=== PATIENT | female | born 1945 ===

== ENCOUNTER 2016-11-18 10:37 | Emergency (ER) | payer MEDICARE, MEDICAID ==
[2016-11-18] MEDS ORDERED: Midazolam 2 MG/2 ML VIAL ONE (10:39)
[2016-11-18] MEDS ORDERED: Midazolam 2 MG/2 ML VIAL IV ONE (10:59)
[2016-11-18] MEDS ORDERED: Etomidate 20 mg/10ml Inj IV ONE (11:00)
--- NOTE | 2016-11-18 11:01 | ED PDOC ---
HPI:STROKE - Time Time: 10:46 ((seen on arrival)) - Historian Historian: EMS - Chief Complaint Chief Complaint: Unresponsive - Onset Date: 11/17/16 Time: 20:00 - Timing Timing: Currently Symptomatic - Exacerbated by Exacerbated by:: Nothing - Relieved by Relieved by:: Nothing - TPA Positive for Contraindication: Yes Reason tPA is not being Administered: +SAH - Notes: Notes:: 70yo female brought in by ALS after being found unresponsive, laying supine on the floor. Patient was last known well last night at 2000. On arrival pt with agonal respirations, aniscoria and +oral secretions. Relatively normotensive. HPI, History, ROS limited by patient condition and clinical urgency. NIHSS Stroke Scale - Date/Time Evaluation Performed Date Performed: 11/18/16 Time Performed: 10:59 - How Severe is the Stroke Level of Consciousness: 3=Unresponsive rTPA Inclusion/Exclusion - Refusal of Treatment Patient Refused Treatment: No - Inclusion Criteria for Altepase Patient is 18 years or Older: Yes The Clinical Diagnosis of Ischemic Stroke That is Causing a Potentially Disabling Neurological Deficit: No Time of Onset is Well Established to be Less Than 270 Minute Before Treatment Would Begin: No Risk/Benefit Discussed With Patient/Family Member Present: Yes - Exclusion Criteria for Altepase Uncontrolled Hypertension at Time of Treatment (Systolic BP above 185 or Diastolic BP above 110 mmHg): No - Warning to TPA With Conditions Following Conditions Weighed Against Anticipated Benefit: Yes Condition: Increase Risk of Bleed Due to Comorbid Condition Past Medical History Reviewed: Historical Data, Nursing Documentation, Vital Signs, Unable To Obtain - Family History Family History: States: Unknown Family Hx - Allergies Allergies/Adverse Reactions: Allergies Allergy/AdvReac Type Severity Reaction Status Date / Time Unobtainable Allergy Verified 11/18/16 10:52 Review of Systems Review Of Systems: ROS cannot be obtained secondary to pt's inabilty to answer questions. Physical Exam - Reviewed Nursing Documentation Reviewed: Yes Vital Signs Reviewed: Yes - Physical Exam Appears: Positive for: In Acute Distress (Non-responsive, anexcoriated) Head Exam: Positive for: ATRAUMATIC, NORMAL INSPECTION, NORMOCEPHALIC Eye Exam: Positive for: Other (sluggish pupils) Respiratory: Negative for: Respiratory Distress (but with increased secretions) Extremity: Positive for: Other (Extension to pain) Neurologic/Psych: Positive for: Other (GCS=4. ) - Laboratory Results Result Diagrams: 11/18/16 11:45 11/18/16 11:45 - ECG ECG: Positive for: Interpreted By Me ECG Rhythm: Positive for: ST/T Changes (ST elev) O2 Sat by Pulse Oximetry: 94 Pulse Ox Interpretation: Normal - Radiology X-Ray Interpretation: No Acute Disease - Progress ED Course And Treament: Code stroke not initiated as initial reports from EMS stated last known well 10 + hrs earlier. Family was not available in ED until ~45min into care. - Physician Consult Information Physician Contacted: Gentry Crocker Outcome Of Conversation: transfer for salvage interventional neurosurgery, [facility] cannot service SAH via intervention. - Critical Care Total Time (In Min): 45 Comments: pt required immediate bedside attention due to AMS and possible acute CVA Medical Decision Making Medical Decision Making: ~1055 Versed 2mg given for apparent trismus/ seizure. Procedure Note- ET intubation. Indication: GCS <8 with active secretions and inability to protect airway. Patient intubated by me via VL with direct visualization of cords after etomidate 20mg given IV. +color change capnography. +b/l BS on auscultation. SPO2 improved to 100% and vent settings ordered thereafter. Diprivan drip initiated for sedation. ETT secured. CXR ETT 3cm above jeanine. ASA contraindicated. [address] Bloom Code Heart. Not candidate given critical neurologic function. [address] Magallanes radiology. +large subarachnoid hemorrghage. CT CSpine no reported fracture. Keppra loaded. [address] Crocker neurology who recommends transfer to [facility] interventional neurosurgery. ST elev likely result of severe SAH and neurologic intervention precludes any cardio intervention. Trop mildly elevated. Plt and coags reviewed and clinically unremarkable. vent setting adjusted via RT to titrate O2. 1135 Family now at bedside and clarifies that patient was last known well this morning. They were assisting patient with "dyeing her hair" when patient went into the bedroom. Patient was found after they heard a loud thump. 1140 case discussed with kelli, they are evaluating for acceptance of transfer. Consent obtained from daughter for transfer via shellfish harvester Marysol Ibarra. Patient had spontaneous movement of head on re-evaluation. Explained to family prognosis remains critical and this is very possibly life threatening. Disposition - Clinical Impression Clinical Impression: Subarachnoid hemorrhage, ST elevation, Coma - Patient ED Disposition Is Patient to be Admitted: Yes Counseled Patient/Family Regarding: Studies Performed, Diagnosis - Disposition Disposition: Other Institution ([facility] neuroICU Dr Bunny Gomez accepting) Disposition Time: 11:50 Condition: CRITICAL - Pt Status Changed To: Hospital Disposition Of: Inpatient - Admit Certification Admit to Inpatient:: After my assessment, the patient will require hospitalization for at least two midnights. This is because of the severity of symptoms shown, intensity of services needed, and/or the medical risk in this patient being treated as an outpatient. - POA Present On Arrival: Falls Or Trauma
[2016-11-18 11:33] LABS: ABG ALLEN TEST YES; ABG MECHANICAL RATE 12; ARTERIAL BLOOD GAS HCO3 23.6 mmol/L (21-28); ARTERIAL BLOOD GAS MODE PRVC/AC; ARTERIAL BLOOD GAS O2 CAPACITY 17.9 mL/dL (16-24); ARTERIAL BLOOD GAS PH 7.39 (7.35-7.45); ARTERIAL BLOOD GAS PO2 278 mm/Hg (80-100); ARTERIAL BLOOD HGB O2 SAT 97.1 % (95.0-98.0); ATERIAL BLOOD GAS PEEP 5; CARBOXYHEMOGLOBIN 1.7 % (0.5-1.5); HHB -0.7 % (0.0-5.0); METHEMOGLOBIN 1.9 % (0.0-3.0)
--- NOTE | 2016-11-18 11:33 | CT ---
PROCEDURE: CT HEAD WITHOUT CONTRAST. HISTORY: r/o ICH COMPARISON: None available. TECHNIQUE: Axial computed tomography images were obtained through the head/brain without intravenous contrast. Radiation dose: Total exam DLP = 765.10 mGy-cm. FINDINGS: BRAIN: Extensive subarachnoid hemorrhage involving suprasellar, basal, sylvian, and intrahemispheric cisterns. No mass effect or edema. No atrophy or chronic microvascular ischemic changes. VENTRICLES: Small amount of intraventricular hemorrhage noted within the bilateral frontal horn lateral ventricles as well as the 3rd and 4th ventricles. No hydrocephalus. CALVARIUM: Unremarkable. PARANASAL SINUSES: Unremarkable as visualized. No significant inflammatory changes. MASTOID AIR CELLS: Unremarkable as visualized. No inflammatory changes. OTHER FINDINGS: None. IMPRESSION: Extensive subarachnoid and intraventricular hemorrhage as above. Correlate clinically for possibility of ruptured cerebral artery aneurysm. Findings discussed with Dr. Blunt on 11/18/16 at 11:23 a.m.
--- NOTE | 2016-11-18 11:41 | CT ---
CT cervical spine without IV contrast Indication: Trauma, rule out fracture Comparison: None available. Technique: Axial computed tomography images were obtained of the cervical spine without the use of intravenous contrast. Coronal and sagittal reformatted images were created and reviewed. Radiation dose: Total exam DLP = 460.11 mGy-cm. Findings: Straightening of the normal cervical lordosis may be related to muscle spasm or positioning. Mild multilevel degenerative changes including small osteophyte formation and minimal intervertebral disc space narrowing. There is no evidence of acute fracture or subluxation. The prevertebral soft tissues and spinolaminar lines appear intact. The uncovertebral joints are well maintained. The lateral masses are preserved. The dens tip is intact. There is proper alignment of the lateral masses of C1 with the C2 vertebral body. Partially imaged endotracheal tube and nasogastric tube. Limited visualization of the base of the brain reveal subarachnoid hemorrhage Included portions of the thyroid gland appear heterogeneous. Included portions of lung apices demonstrates bilateral dependent consolidations. Impression: Straightening of the normal cervical lordosis may be related to muscle spasm or positioning. No evidence of acute fracture or subluxation. Mild degenerative changes of the spine. Partially imaged subarachnoid hemorrhage; please refer to CT head without contrast performed concurrently for more detailed discussion. Partially imaged endotracheal tube and nasogastric tube. Lung apices demonstrate bilateral depending consolidations. Heterogeneous appearance of the included portions thyroid gland.
[2016-11-18 12:11] LABS: PARTIAL THROMBOPLASTIN TIME 23.1 SECONDS (23.3-32.5)
[2016-11-18 12:12] LABS: BASO % 0.3 % (0.0-2.0); BLOOD UREA NITROGEN 19 mg/dl (7-17); CALCIUM 9.1 mg/dL (8.4-10.2); CARBON DIOXIDE 22 mmol/L (22-30); CHLORIDE 106 mmol/L (98-107); EOS % 0.2 % (0.0-4.0); GFR AFRICAN-AMERICAN > 60; GLUCOSE,RANDOM 130 mg/dL (65-105); HEMATOCRIT 40.9 % (34.0-47.0); LYMPH # 1.5 K/uL (1.0-4.3); LYMPH % 18.2 % (20.0-40.0); MEAN CELL VOLUME 90.7 fl (81.0-99.0); MEAN CORPUSCULAR HEMOGLOBIN 29.5 pg (27.0-31.0); MEAN CORPUSCULAR HGB CONC 32.6 g/dL (33.0-37.0); MEAN PLATELET VOLUME 7.3 fl (7.2-11.7); MONO # 0.4 K/uL (0.0-0.8); MONO % 4.5 % (0.0-10.0); NEUT # 6.5 K/uL (1.8-7.0); NEUT % 76.8 % (50.0-75.0); NRBC % 0.1 % (0.0-0.0); POTASSIUM 3.9 MMOL/L (3.6-5.0); RED CELL DISTRIBUTION WIDTH 14.1 % (11.5-14.5); SODIUM 139 mmol/l (132-148); WHITE BLOOD COUNT 8.4 K/uL (4.8-10.8)
--- NOTE | 2016-11-18 12:17 | RAD ---
HISTORY: SOB COMPARISON: None available. TECHNIQUE: Chest, one view. FINDINGS: Distal tip of an endotracheal tube terminates approximately 3 cm above the kayla. LUNGS: Linear atelectasis, right midlung zone. Please note that chest x-ray has limited sensitivity for the detection of pulmonary masses. PLEURA: No significant pleural effusion identified. No definite pneumothorax . CARDIOVASCULAR: The cardiomediastinal silhouette appears within normal limits of size. OSSEOUS STRUCTURES: No acute osseous abnormality identified. VISUALIZED UPPER ABDOMEN: Unremarkable. OTHER FINDINGS: None. IMPRESSION: Endotracheal tube terminates approximately 3 cm above the level the kayla.
[2016-11-18 12:35] VITALS: RESP 14
[2016-11-18 13:15] VITALS: BP 130/78; PULSE 87
--- NOTE | 2016-11-19 07:22 | CARD ---
APPROVED REPORT EKG Measurement Heart [id number] <Conclusion> Undetermined rhythm (due to baseline artefacts) ST elevation, consider lateral injury or acute infarct ACUTE LA / STEMI Abnormal ECG
[2016-11-19 16:17] VITALS: O2SAT 94
== END 2016-11-18 13:17 | disposition short-term general hospital (02) ==
LOC: H.ER 10:37
DX: I60.9 Nontraumatic subarachnoid hemorrhage, unspecified (principal); R40.20 Unspecified coma
CPT/HCPCS: 36600; 70450; 71010; 72125; 80048; 82803; 84484; 85025; 85610; 85730; 93005; 94002; 96374; 96375; 99283; J1953; J2250; J2704

== ENCOUNTER 2016-12-07 13:13 | Inpatient (IN) | payer MEDICARE, MEDICAID ==
[2016-12-07 18:44] VITALS: BMI 23.8
--- NOTE | 2016-12-07 20:32 | CP.PCM.HP ---
History of Present Illness - History of Present Illness History of Present Illness: PCP: Not on Staff Chief Complaint: Subaracnoid Hemorrhage for Acute Rehabilitation HPI: 70 years old female from [place] here on vacation with her daughter, transferred from the [facility] with Subaracnoid Hemorrhage s/p AV shunt placement. She has hx of HTN and on 11/18/16 was found on the floor unresponsive with left facial droop, brought to the [facility] ED intubated, and diagnosed with Subdural hematoma due to Aneursmal bleed. She was Immediately transferred to [facility] where ventriculostomy and catheter with distal tip terminating in right frontal horn with embolization and coiling was done. the Neuro surgeon was Dr Sg Gomez. During her admission she was diagnosed with Acute Cardiomyopathy and Pancreatitis which are improving. PMH: HTN; Acute respiratory failure with Intubation; Groove Pancreatitis; Anemia ; Acute Cardiomyopathy; Ruptured Cerebral Aneurysm PSH: Appendectomy; (11/18/16 Ventriculostomy with embolization and aneurysmal coiling); (12/05/16 [employer] Shunt placement) SH: Non smoker; no illegal drug use; No alcohol, Lives with son in [place], now staying with daughter in [place] FH: No hereditary disease Allergies: NKDA Present on Admission - Present on Admission Any Indicators Present on Admission: No History of DVT/PE: No History of Uncontrolled Diabetes: No Urinary Catheter: No Decubitus Ulcer Present: No Review of Systems - Constitutional Constitutional: Headache. absent: Fatigue, Fever - EENT Eyes: Requires Corrective Lenses. absent: Blurred Vision, Photophobia, Sees Flashes Ears: absent: Decreased Hearing, Ear Discharge, Ear Pain, Tinnitus Nose/Mouth/Throat: absent: Epistaxis, Nasal Congestion, Nasal Discharge, Sore Throat Additional comments: Ptosis left eye. - Cardiovascular Cardiovascular: absent: Chest Pain, Dyspnea, Edema, Orthopnea - Respiratory Respiratory: absent: Cough, Dyspnea, Wheezing, Stridor - Gastrointestinal Gastrointestinal: Abdominal Pain. absent: Constipation, Diarrhea, Nausea, Vomiting - Genitourinary Genitourinary: Dysuria. absent: Flank Pain, Hematuria, Urinary Frequency - Musculoskeletal Musculoskeletal: absent: Arthralgias, Joint Swelling, Myalgias, Numbness - Integumentary Additional comments: Rash to right upper shoulder, at the left axillae region, erythema behind the right ear - Neurological Neurological: Dizziness, Focal Weakness, Headaches Additional comments: right facial weakness. - Psychiatric Psychiatric: absent: Anxiety, Depression, Panic Attacks - Endocrine Endocrine: absent: Palpitations, Polydipsia, Polyphagia, Polyuria - Hematologic/Lymphatic Hematologic: absent: Easy Bleeding, Easy Bruising Past Patient History - Past Medical History & Family History Past Medical History?: Yes - Past Social History Smoking Status: Unknown If Ever Smoked Chewing Tobacco Use: No Cigar Use: No Alcohol: None Drugs: Denies Home Situation {Lives}: With Family - CARDIAC Hx Cardiac Disorders: Yes Hx Hypertension: Yes - PULMONARY Hx Respiratory Disorders: Yes Other/Comment: Acute respiratory failure with intubation/ extubation - NEUROLOGICAL Hx Neurological Disorder: Yes HX Cerebrovascular Accident: Yes (Subaracnoid hemorrhage) Other/Comment: Third nerve Palsy - HEENT Hx HEENT Problems: Yes Other/Comment: Right eye Ptosis - RENAL Hx Chronic Kidney Disease: No - ENDOCRINE/METABOLIC Hx Endocrine Disorders: No - HEMATOLOGICAL/ONCOLOGICAL Hx Anemia: Yes - INTEGUMENTARY Hx Dermatological Problems: No - MUSCULOSKELETAL/RHEUMATOLOGICAL Hx Musculoskeletal Disorders: No - GASTROINTESTINAL Hx Gastrointestinal Disorders: No - PSYCHIATRIC Hx Psychophysiologic Disorder: No Hx Substance Use: No - SURGICAL HISTORY Hx Surgeries: Yes Other/Comment: Cerebral Ventriculostomy cath with distal tip terminating in Right frontal horn and embolization coiling. LEGAL DOCUMENT SPECIALIST shunt - ANESTHESIA Hx Anesthesia: Yes Hx Anesthesia Reactions: No Meds Allergies/Adverse Reactions: Allergies Allergy/AdvReac Type Severity Reaction Status Date / Time No Known Allergies Allergy Verified 12/07/16 21:19 Physical Exam - Head Exam Head Exam: absent: NORMAL INSPECTION Additional comments: New surgical wound with shama 10cm at right parieto-occipital region and surgical wound with staple behind the right ear. - Eye Exam Eye Exam: absent: EOMI Pupil Exam: NORMAL ACCOMODATION Additional comments: Ptosis of the left eye with minimal active opening. 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 - ENT Exam Additional comments: Erythema at right posterior auricule with surgical wound and staple, and infra auricular ischemia. - Neck Exam Neck exam: Positive for: Full Rom. Negative for: Lymphadenopathy, Thyromegaly - Respiratory Exam Respiratory Exam: Clear to Auscultation Bilateral. absent: Rales, Rhonchi, Wheezes - Cardiovascular Exam Cardiovascular Exam: REGULAR RHYTHM, RRR, +S1, +S2. absent: Gallop, JVD - GI/Abdominal Exam Additional comments: 8cm infra umbilical surgical wound with transparent dressing. Abdomen flat, soft ,+ve bowel sounds, generalized tenderness, no guarding nor rebound tenderness. - Rectal Exam Rectal Exam: Deferred - Extremities Exam Extremities exam: Positive for: full ROM, normal inspection. Negative for: joint swelling, pedal edema, tenderness - Back Exam Back exam: NORMAL INSPECTION. absent: CVA tenderness (L), CVA tenderness (R) - Neurological Exam Neurological exam: Alert, Oriented x3, Reflexes Normal Additional comments: Left third nerve palsy with Left ptosis and deviation of the eye center and to the right. - Psychiatric Exam Psychiatric exam: Normal Affect, Normal Mood - Skin Skin Exam: Dry, Warm Additional comments: Erythematous rash at upper right chest wall with mild ecchymosis, non-tender. Erythema at left axillae, non tender. Results - EKG Data EKG comments: EK11/19/16: Sinus rhythm 88/min - Impressions Impression: 12/04/16 Hb 9.3g/dl Ht 28 WBC 3.9 Platelet 607 Sodium 134 Potassium 3.8 BUN 12 Creatinine 0.6 Pro BNP 2811 11/18/16: LDL 132; HDL 54; cholesterol 206 - Imaging and Cardiology CT scan - chest Status: Report reviewed by me Additional comment: 11/18/16: Extensive subarachnoid and Intraventricular hemorrhage of possible ruptured cerebral artery aneurysm. CT scan - abdomen Status: Report reviewed by me Additional comment: 11/27/16 1. Subtle inflammatory change in the pancreticoduodenal groove, suspicious for groove pancreatitis. 2. Small pericardial effusion 3. Small right and trace left pleural effusions. Atelectasis vs scaring in the right minor fissure. 4. Subcentimeter hepatic lesion, statistically a cyst.. MRSA screen by PCR Status: Report reviewed by me Additional comment: Negative ECHO 11/30/16 Status: Report reviewed by me Additional comment: EF 55% Aneurysm of base of mid anterolateral wall smaller than previous study. Assessment & Plan - Assessment and Plan (Free Text) Assessment: #. Subaracnoid Hemorrhage s/p embolism of ruptured intracraneal Aneurysm #. Hyponatremia #. HTN #. Anemia #. Resolving Groove pancreatitis #. Resolving Acute Cardiomyopathy Plan: 70 years old female, transferred for rehabilitation, from the [facility] with Subaracnoid Hemorrhage s/p AV shunt placement. On was found on the floor unresponsive with left facial droop, brought to the [facility] ED and diagnosed with Subdural hematoma due to Aneursmal bleed. She was Immediately transferred to [facility] where embolization and coiling of ruptured cntracranial aneurysm was done. The Neuro surgeon was Dr Sg Gomez. #. Subaracnoid Hemorrhage s/p embolism of ruptured intracraneal Aneurysm,s/p LEGAL DOCUMENT SPECIALIST shunt placement -Consult Neurology Dr Snider - consult Dr Mccray Physiatry - Physical Therapy - Occupational Therapy - Pain management #. Hyponatremia - Fegular diet - Sodium Chloride tablets igm TID - follow electrolytes #. HTN - Coreg - Monitor Vital signs #. Anemia - Monitor HB #. Resolving Groove pancreatitis - follow Amylase - Pain management #. Resolving Acute Cardiomyopathy - Coreg #. Stress ulcer Prophylaxis with Pantoprazole #. DVT prophylaxis - Lovenox #. code Status: Full - Date & Time Date: 12/07/16 Time: 20:32
[2016-12-07] MEDS ORDERED: ACETAMINOPHEN PO PRN (22:40)
[2016-12-07] MEDS ORDERED: Oxycodone/Acetaminophen 5/325 mg Tab PO PRN ×2 (22:40)
[2016-12-08] MEDS: Artificial Tears Opht Soln OU SCH ×2 (00:25→17:14)
[2016-12-08] MEDS ORDERED: Oxycodone/Acetaminophen 5/325 mg Tab PO PRN (06:36)
[2016-12-08 07:27] LABS: BASO % 0.7 % (0.0-2.0); EOS % 0.3 % (0.0-4.0); HEMATOCRIT 31.3 % (34.0-47.0); LYMPH # 1.3 K/uL (1.0-4.3); LYMPH % 30.6 % (20.0-40.0); MEAN CELL VOLUME 90.7 fl (81.0-99.0); MEAN CORPUSCULAR HEMOGLOBIN 29.5 pg (27.0-31.0); MEAN CORPUSCULAR HGB CONC 32.5 g/dL (33.0-37.0); MEAN PLATELET VOLUME 6.3 fl (7.2-11.7); MONO # 0.6 K/uL (0.0-0.8); MONO % 13.8 % (0.0-10.0); NEUT # 2.2 K/uL (1.8-7.0); NEUT % 54.6 % (50.0-75.0); RED CELL DISTRIBUTION WIDTH 15.9 % (11.5-14.5); WHITE BLOOD COUNT 4.1 K/uL (4.8-10.8)
[2016-12-08 07:36] LABS: ALB/GLOB RATIO 1.1 (1.0-2.1); ALKALINE PHOSPHATASE 172 U/L (38-126); ALT/SGPT 24 U/L (9-52); AST/SGOT 32 U/L (14-36); BILIRUBIN,TOTAL 0.7 mg/dl (0.2-1.3); BLOOD UREA NITROGEN 7 mg/dl (7-17); CALCIUM 9.6 mg/dL (8.4-10.2); CARBON DIOXIDE 25 mmol/L (22-30); CHLORIDE 102 mmol/L (98-107); GFR AFRICAN-AMERICAN > 60; GLUCOSE,RANDOM 99 mg/dL (65-105); LIPASE 241 U/L (23-300); POTASSIUM 3.7 MMOL/L (3.6-5.0); SODIUM 139 mmol/l (132-148); TOTAL PROTEIN 6.8 G/DL (6.3-8.2)
[2016-12-08 07:40] LABS: PARTIAL THROMBOPLASTIN TIME 29.2 SECONDS (23.3-32.5)
[2016-12-08] MEDS: Pantoprazole 40 mg EC Tab PO SCH (09:21)
[2016-12-08] MEDS: Oxycodone/Acetaminophen 5/325 mg Tab PO PRN ×2 (09:27→17:40)
[2016-12-08] MEDS: Enoxaparin 40 mg Syringe SC SCH (11:00)
--- NOTE | 2016-12-08 11:54 | CP.PCM.CON ---
History of Present Illness - History of Present Illness History of Present Illness: 70 year old female for acute inpatient rehab status post subarachnoid hemorrhage. Patient also initially had ruptured cerebral aneurysm. Now status post HIGH ENERGY FORMING EQUIPMENT OPERATOR shunt by neurosurgeon. Review of Systems - Musculoskeletal Musculoskeletal: Abnormal Gait, Muscle Weakness Past Patient History - Past Medical History & Family History Past Medical History?: Yes - Past Social History Smoking Status: Unknown If Ever Smoked Chewing Tobacco Use: No Cigar Use: No Alcohol: None Drugs: Denies Home Situation {Lives}: With Family - CARDIAC Hx Cardiac Disorders: Yes Hx Hypertension: Yes - PULMONARY Hx Respiratory Disorders: Yes Other/Comment: Acute respiratory failure with intubation/ extubation - NEUROLOGICAL Hx Neurological Disorder: Yes HX Cerebrovascular Accident: Yes (Subaracnoid hemorrhage) Other/Comment: Third nerve Palsy - HEENT Hx HEENT Problems: Yes Other/Comment: Right eye Ptosis - RENAL Hx Chronic Kidney Disease: No - ENDOCRINE/METABOLIC Hx Endocrine Disorders: No - HEMATOLOGICAL/ONCOLOGICAL Hx Anemia: Yes - INTEGUMENTARY Hx Dermatological Problems: No - MUSCULOSKELETAL/RHEUMATOLOGICAL Hx Musculoskeletal Disorders: No - GASTROINTESTINAL Hx Gastrointestinal Disorders: No - GENITOURINARY/GYNECOLOGICAL Hx Genitourinary Disorders: No - PSYCHIATRIC Hx Psychophysiologic Disorder: No Hx Substance Use: No - SURGICAL HISTORY Hx Surgeries: Yes Other/Comment: Cerebral Ventriculostomy cath with distal tip terminating in Right frontal horn and embolization coiling. HIGH ENERGY FORMING EQUIPMENT OPERATOR shunt - ANESTHESIA Hx Anesthesia: Yes Hx Anesthesia Reactions: No Meds Allergies/Adverse Reactions: Allergies Allergy/AdvReac Type Severity Reaction Status Date / Time No Known Allergies Allergy Verified 12/07/16 21:19 - Medications Medications: Current Medications Acetaminophen (Tylenol 325mg Tab) 650 mg PO Q4 PRN PRN Reason: Fever >100.4 F Artificial Tears (Artificial Tears) 1 drop OU QD6 COUNTS INCLUDE 234 BEDS AT THE [facility] Last Admin: 12/08/16 00:25 Dose: 1 drop Carvedilol (Coreg) 3.125 mg PO Q12 COUNTS INCLUDE 234 BEDS AT THE [facility] Last Admin: 12/08/16 09:19 Dose: 3.125 mg Docusate Sodium (Colace) 100 mg PO BID COUNTS INCLUDE 234 BEDS AT THE [facility] Last Admin: 12/08/16 09:20 Dose: 100 mg Enoxaparin Sodium (Lovenox) 40 mg SC DAILY COUNTS INCLUDE 234 BEDS AT THE [facility] PRN Reason: Protocol Methadone HCl (Methadone) 2.5 mg PO Q8 COUNTS INCLUDE 234 BEDS AT THE [facility] Last Admin: 12/08/16 06:24 Dose: 2.5 mg Oxycodone/Acetaminophen (Percocet 5/325 Mg Tab) 2 tab PO Q4 PRN PRN Reason: Pain, severe (8-10) Stop: 12/10/16 22:41 Oxycodone/Acetaminophen (Percocet 5/325 Mg Tab) 1 tab PO Q4 PRN PRN Reason: Pain, moderate (4-7) Stop: 12/10/16 22:41 Last Admin: 12/08/16 09:27 Dose: 1 tab Pantoprazole Sodium (Protonix Ec Tab) 40 mg PO DAILY COUNTS INCLUDE 234 BEDS AT THE [facility] Last Admin: 12/08/16 09:21 Dose: 40 mg Sennosides (Senokot Tab) 8.6 mg PO DAILY COUNTS INCLUDE 234 BEDS AT THE [facility] Last Admin: 12/08/16 09:21 Dose: 8.6 mg Sodium Chloride (Sodium Chloride Tab) 1 gm PO TID COUNTS INCLUDE 234 BEDS AT THE [facility] Last Admin: 12/08/16 09:24 Dose: 1 gm Topiramate (Topamax) 25 mg PO Q12 COUNTS INCLUDE 234 BEDS AT THE [facility] Last Admin: 12/08/16 09:23 Dose: 25 mg Physical Exam - Constitutional Appears: Well - Head Exam Head Exam: NORMOCEPHALIC Additional comments: status post shama - Eye Exam Eye Exam: Normal appearance Pupil Exam: NORMAL ACCOMODATION Additional comments: ptyosis left eye - ENT Exam ENT Exam: Mucous Membranes Moist, Normal Exam - Respiratory Exam Respiratory Exam: NORMAL BREATHING PATTERN - Cardiovascular Exam Cardiovascular Exam: REGULAR RHYTHM - GI/Abdominal Exam GI & Abdominal Exam: Normal Bowel Sounds - Rectal Exam Rectal Exam: NORMAL INSPECTION - Extremities Exam Additional comments: left eye ptysis, right sided weakness decreased strength and coordination, balance - Back Exam Back exam: NORMAL INSPECTION - Neurological Exam Neurological exam: Alert, Reflexes Normal - Psychiatric Exam Psychiatric exam: Normal Affect, Normal Mood - Skin Skin Exam: Dry, Warm Results - Vital Signs Recent Vital Signs: Last Vital Signs Temp 97.9 F 12/08/16 09:43 Pulse 81 12/08/16 09:43 Resp 20 12/08/16 09:43 BP 143/71 12/08/16 09:43 Pulse Ox 98 12/08/16 09:43 - Labs Result Diagrams: 12/08/16 05:30 12/08/16 05:30 Labs: Laboratory Results - last 24 hr 12/08/16 05:30 WBC 4.1 L D RBC 3.45 L Hgb 10.2 L D Hct 31.3 L MCV 90.7 MCH 29.5 MCHC 32.5 L RDW 15.9 H Plt Count 511 H D MPV 6.3 L Neut % (Auto) 54.6 Lymph % (Auto) 30.6 Davidson % (Auto) 13.8 H Eos % (Auto) 0.3 Baso % (Auto) 0.7 Neut # 2.2 Lymph # 1.3 Davidson # 0.6 Eos # 0.0 Baso # 0.0 PT 11.4 H INR 1.10 H APTT 29.2 Sodium 139 Potassium 3.7 Chloride 102 Carbon Dioxide 25 Anion Gap 16 BUN 7 Creatinine 0.6 L Est GFR ( Amer) > 60 Est GFR (Non-Af Amer) > 60 Random Glucose 99 Calcium 9.6 Total Bilirubin 0.7 AST 32 ALT 24 Alkaline Phosphatase 172 H Total Protein 6.8 Albumin 3.5 Globulin 3.3 Albumin/Globulin Ratio 1.1 Lipase 241 Assessment & Plan (1) Subarachnoid hemorrhage Assessment and Plan: patient also with diagnosis of Cardiopathy, HIGH ENERGY FORMING EQUIPMENT OPERATOR shunt placement HTn Pancreatitis Ruptured cerebral aneurysm Plan for physical, occupational, speech , receational therapy program. Overall plan and goals to dictate. For Acute Rehab. Status: Acute
--- NOTE | 2016-12-08 13:08 | PN ---
DATE: 12/08/2016 The patient is a 70-year-old female admitted for acute inpatient rehab on 12/07. A patient with a di agnosis of subarachnoid hemorrhage, status post ventriculoperitoneal shunt, also history of ruptured cerebral aneurysm. The patient was diagnosed also with hypertension, cardiomyopathy, pancreatitis, n ow admitted for acute inpatient rehabilitation. Estimated length of stay for this patient is 2-3 wee ks. Anticipated discharge plan is to go back to live at home with supportive services. TREATMENT PLAN: For the patient is physical therapy, occupational therapy, recreational therapy, spe ech therapy and case management. Plan for the patient and treatment is to get range of motion, stren gthening, transfers, ambulation, gait training, speech for cognitive evaluation, ADL evaluation and e quipment evaluation. Goals for the patient will be further changed and modified depending on patient 's return of muscle strength and cognition and how patient does in therapy. At present, goals for ind ependent to supervision for bed mobility, independent to supervision for simple transfers, supervisio n to contact guard for complex transfers, supervision to contact guard for ambulation with assistive devices, contact guard to min assist for elevations. The patient is again for physical therapy, occu pational therapy, recreational therapy, speech therapy. DISCHARGE DISPOSITION: For discharge home. CONDITION AT PRESENT: Stable. George Hurst MD cc: [phone] TT: 12/08/2016 13:07:34 Confirmation # [id number] Dictation # [id number] [email or web address]
[2016-12-08] MEDS ORDERED: Artificial Tears Opht Soln OU SCH (18:00)
[2016-12-08] MEDS ORDERED: HYPROMELLOSE OU SCH (18:00)
[2016-12-08] MEDS ORDERED: DEXTRAN OU SCH (18:00)
[2016-12-09] MEDS: Enoxaparin 40 mg Syringe SC SCH (08:59)
[2016-12-09] MEDS: Pantoprazole 40 mg EC Tab PO SCH (08:59)
--- NOTE | 2016-12-09 10:25 | CP.PCM.PN ---
Subjective - Date & Time of Evaluation Date of Evaluation: 12/09/16 Time of Evaluation: 10:24 - Subjective Subjective: patient seen in physical therapy for evaluation doing well without any complains does have generalized weakness, however strength is grossly equal vitals stable no acute distress Objective - Vital Signs/Intake and Output Vital Signs (last 24 hours): Temp Pulse Resp BP Pulse Ox 97.9 F 77 19 120/56 L 100 12/09/16 07:36 12/09/16 08:59 12/09/16 07:36 12/09/16 08:59 12/09/16 07:36 - Medications Medications: Current Medications Acetaminophen (Tylenol 325mg Tab) 650 mg PO Q4 PRN PRN Reason: Fever >100.4 F Artificial Tears (Artificial Tears) 1 drop OU QD6 [facility] Last Admin: 12/08/16 17:14 Dose: 1 drop Carvedilol (Coreg) 3.125 mg PO Q12 [facility] Last Admin: 12/09/16 08:59 Dose: 3.125 mg Docusate Sodium (Colace) 100 mg PO BID [facility] Last Admin: 12/09/16 08:59 Dose: 100 mg Enoxaparin Sodium (Lovenox) 40 mg SC DAILY [facility] PRN Reason: Protocol Last Admin: 12/09/16 08:59 Dose: 40 mg Methadone HCl (Methadone) 2.5 mg PO Q8 [facility] Last Admin: 12/09/16 06:49 Dose: 2.5 mg Oxycodone/Acetaminophen (Percocet 5/325 Mg Tab) 2 tab PO Q4 PRN PRN Reason: Pain, severe (8-10) Stop: 12/10/16 22:41 Oxycodone/Acetaminophen (Percocet 5/325 Mg Tab) 1 tab PO Q4 PRN PRN Reason: Pain, moderate (4-7) Stop: 12/10/16 22:41 Last Admin: 12/08/16 17:40 Dose: 1 tab Pantoprazole Sodium (Protonix Ec Tab) 40 mg PO DAILY [facility] Last Admin: 12/09/16 08:59 Dose: 40 mg Sennosides (Senokot Tab) 8.6 mg PO DAILY [facility] Last Admin: 12/09/16 08:59 Dose: 8.6 mg Sodium Chloride (Sodium Chloride Tab) 1 gm PO TID [facility] Last Admin: 12/09/16 08:58 Dose: 1 gm Topiramate (Topamax) 25 mg PO Q12 [facility] Last Admin: 12/09/16 08:59 Dose: 25 mg - Labs Labs: 12/08/16 05:30 12/08/16 05:30 PT 11.4 SECONDS (9.6-11.2) H 12/08/16 05:30 INR 1.10 (0.92-1.08) H 12/08/16 05:30 APTT 29.2 SECONDS (23.3-32.5) 12/08/16 05:30 - Constitutional Appears: Non-toxic, No Acute Distress - Head Exam Head Exam: NORMOCEPHALIC Additional comments: s/p craniotomy - Eye Exam Eye Exam: EOMI, Normal appearance, PERRL Pupil Exam: NORMAL ACCOMODATION - ENT Exam ENT Exam: Mucous Membranes Moist, Normal Exam - Neck Exam Neck Exam: Full ROM, Normal Inspection - Respiratory Exam Respiratory Exam: Clear to Ausculation Bilateral, NORMAL BREATHING PATTERN - Cardiovascular Exam Cardiovascular Exam: RRR, +S1, +S2. absent: Gallop, Rubs - GI/Abdominal Exam GI & Abdominal Exam: Soft, Normal Bowel Sounds. absent: Tenderness, Mass, Organomegaly - Extremities Exam Extremities Exam: Full ROM, Normal Capillary Refill - Back Exam Back Exam: absent: CVA tenderness (L), CVA tenderness (R) - Neurological Exam Neurological Exam: Alert, Awake - Psychiatric Exam Psychiatric exam: Normal Affect, Normal Mood - Skin Skin Exam: Dry, Warm Assessment and Plan - Assessment and Plan (Free Text) Plan: 70 years old female, transferred for rehabilitation, from the [facility] with Subaracnoid Hemorrhage s/p AV shunt placement. On was found on the floor unresponsive with left facial droop, brought to the [facility] ED and diagnosed with Subdural hematoma due to Aneursmal bleed. She was Immediately transferred to [facility] where embolization and coiling of ruptured intracranial aneurysm was done. The Neuro surgeon was Dr Sg Gomez. 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 patient is stable, tolerating PT well. -Consult Neurology Dr Snider - consult Dr Mccray Physiatry - Physical Therapy - Occupational Therapy - Pain management Hyponatremia - Fegular diet - Sodium Chloride tablets igm TID - follow electrolytes HTN - Coreg - Monitor Vital signs Anemia - Monitor HB Resolving pancreatitis - follow Amylase - Pain management Resolving Acute Cardiomyopathy - Coreg Stress ulcer Prophylaxis with Pantoprazole DVT prophylaxis - Lovenox code Status: Full
[2016-12-09] MEDS: Artificial Tears Opht Soln OU SCH (17:11)
[2016-12-10] MEDS: Pantoprazole 40 mg EC Tab PO SCH (08:43)
[2016-12-10] MEDS: Enoxaparin 40 mg Syringe SC SCH (08:43)
--- NOTE | 2016-12-10 15:36 | CP.PCM.PN ---
Subjective - Date & Time of Evaluation Date of Evaluation: 12/10/16 Time of Evaluation: 15:00 - Subjective Subjective: patient with no neck or back pain Objective - Vital Signs/Intake and Output Vital Signs (last 24 hours): Temp Pulse Resp BP Pulse Ox 97.9 F 81 20 109/66 100 12/10/16 09:05 12/10/16 09:05 12/10/16 09:05 12/10/16 09:05 12/10/16 09:05 - Medications Medications: Current Medications Acetaminophen (Tylenol 325mg Tab) 650 mg PO Q4 PRN PRN Reason: Fever >100.4 F Acetaminophen (Tylenol 325mg Tab) 650 mg PO Q6 PRN PRN Reason: mild pain 1-3, headache, fever Last Admin: 12/10/16 14:05 Dose: 650 mg Artificial Tears (Artificial Tears) 1 drop OU QD6 [facility] Last Admin: 12/09/16 17:11 Dose: 1 drop Carvedilol (Coreg) 3.125 mg PO Q12 [facility] Last Admin: 12/10/16 08:43 Dose: 3.125 mg Docusate Sodium (Colace) 100 mg PO BID [facility] Last Admin: 12/10/16 08:44 Dose: 100 mg Enoxaparin Sodium (Lovenox) 40 mg SC DAILY [facility] PRN Reason: Protocol Last Admin: 12/10/16 08:43 Dose: 40 mg Oxycodone/Acetaminophen (Percocet 5/325 Mg Tab) 2 tab PO Q4 PRN PRN Reason: Pain, severe (8-10) Stop: 12/10/16 22:41 Oxycodone/Acetaminophen (Percocet 5/325 Mg Tab) 1 tab PO Q4 PRN PRN Reason: Pain, moderate (4-7) Stop: 12/10/16 22:41 Last Admin: 12/08/16 17:40 Dose: 1 tab Pantoprazole Sodium (Protonix Ec Tab) 40 mg PO DAILY [facility] Last Admin: 12/10/16 08:43 Dose: 40 mg Sennosides (Senokot Tab) 8.6 mg PO DAILY [facility] Last Admin: 12/10/16 08:44 Dose: 8.6 mg Sodium Chloride (Sodium Chloride Tab) 1 gm PO TID [facility] Last Admin: 12/10/16 12:14 Dose: 1 gm Topiramate (Topamax) 25 mg PO Q12 [facility] Last Admin: 12/10/16 08:44 Dose: 25 mg - Labs Labs: 12/08/16 05:30 12/08/16 05:30 PT 11.4 SECONDS (9.6-11.2) H 12/08/16 05:30 INR 1.10 (0.92-1.08) H 12/08/16 05:30 APTT 29.2 SECONDS (23.3-32.5) 12/08/16 05:30 - Head Exam Head Exam: ATRAUMATIC, NORMAL INSPECTION, NORMOCEPHALIC - Eye Exam Eye Exam: EOMI, Normal appearance, PERRL Pupil Exam: NORMAL ACCOMODATION - ENT Exam ENT Exam: Mucous Membranes Moist, Normal Exam - Respiratory Exam Respiratory Exam: NORMAL BREATHING PATTERN - Cardiovascular Exam Cardiovascular Exam: REGULAR RHYTHM - GI/Abdominal Exam GI & Abdominal Exam: Normal Bowel Sounds - Rectal Exam Rectal Exam: NORMAL INSPECTION - Exam External exam: NORMAL EXTERNAL EXAM - Extremities Exam Extremities Exam: Normal Capillary Refill, Normal Inspection - Neurological Exam Neurological Exam: Alert, Awake Neuro motor strength exam: Left Upper Extremity: 4, Right Upper Extremity: 3, Left Lower Extremity: 4, Right Lower Extremity: 3 - Psychiatric Exam Psychiatric exam: Normal Affect, Normal Mood - Skin Skin Exam: Dry, Intact Assessment and Plan (1) Subarachnoid hemorrhage Assessment & Plan: physcial, occupational therapy caregiver training Dc for friday Status: Acute
[2016-12-10] MEDS: Artificial Tears Opht Soln OU SCH ×2 (16:36→17:04)
--- NOTE | 2016-12-11 02:49 | CP.PCM.CON ---
History of Present Illness - History of Present Illness History of Present Illness: Chief Complaint: Subaracnoid Hemorrhage for Acute Rehabilitation HPI: 70 years old female from [place] here on vacation with her daughter, transferred from the [facility] with Subaracnoid Hemorrhage s/p AV shunt placement. She has hx of HTN and on 11/18/16 was found on the floor unresponsive with left facial droop, brought to the [facility] ED intubated, and diagnosed with Subdural hematoma due to Aneursmal bleed. She was Immediately transferred to [facility] where ventriculostomy and catheter with distal tip terminating in right frontal horn with embolization and coiling was done. the Neuro surgeon was Dr Sg oGmez. During her admission she was diagnosed with Acute Cardiomyopathy and Pancreatitis which are improving. 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 Tech Shunt placement) SH: Non smoker; no illegal drug use; No alcohol, Lives with son in [place], now staying with daughter in [place] FH: No hereditary disease Allergies: NKDA Past Patient History - Past Medical History & Family History Past Medical History?: Yes - Past Social History Smoking Status: Unknown If Ever Smoked Chewing Tobacco Use: No Cigar Use: No Alcohol: None Drugs: Denies Home Situation {Lives}: With Family - CARDIAC Hx Cardiac Disorders: Yes Hx Hypertension: Yes - PULMONARY Hx Respiratory Disorders: Yes Other/Comment: Acute respiratory failure with intubation/ extubation - NEUROLOGICAL Hx Neurological Disorder: Yes HX Cerebrovascular Accident: Yes (Subaracnoid hemorrhage) Other/Comment: Third nerve Palsy - HEENT Hx HEENT Problems: Yes Other/Comment: Right eye Ptosis - SURGICAL HISTORY Hx Surgeries: Yes Other/Comment: Cerebral Ventriculostomy cath with distal tip terminating in Right frontal horn and embolization coiling. TOOL REPAIRER shunt - ANESTHESIA Hx Anesthesia: Yes Hx Anesthesia Reactions: No Meds Allergies/Adverse Reactions: Allergies Allergy/AdvReac Type Severity Reaction Status Date / Time No Known Allergies Allergy Verified 12/07/16 21:19 CT scan - abdomen Status: Report reviewed by me Additional comment: 11/27/16 1. Subtle inflammatory change in the pancreticoduodenal groove, suspicious for groove pancreatitis. 2. Small pericardial effusion 3. Small right and trace left pleural effusions. Atelectasis vs scaring in the right minor fissure. 4. Subcentimeter hepatic lesion, statistically a cyst.. MRSA screen by PCR Status: Report reviewed by me Additional comment: Negative ECHO 11/30/16 Status: Report reviewed by me Additional comment: EF 55% Aneurysm of base of mid anterolateral wall smaller than previous study. Assessment & Plan - Assessment and Plan (Free Text) Assessment: #. Subaracnoid Hemorrhage s/p embolism of ruptured intracraneal Aneurysm #. Hyponatremia #. HTN #. Anemia #. Resolving Groove pancreatitis #. Resolving Acute Cardiomyopathy Plan: 70 years old female, transferred for rehabilitation, from the [facility] with Subaracnoid Hemorrhage s/p AV shunt placement. On was found on the floor unresponsive with left facial droop, brought to the [facility] ED and diagnosed with Subdural hematoma due to Aneursmal bleed. She was Immediately transferred to [facility] where embolization and coiling of ruptured cntracranial aneurysm was done. The Neuro surgeon was Dr Sg Gomez. #. 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 Patient needs to be covered by AED. Past Patient History - Past Medical History & Family History Past Medical History?: Yes - Past Social History Smoking Status: Unknown If Ever Smoked Chewing Tobacco Use: No Cigar Use: No Alcohol: None Drugs: Denies Home Situation {Lives}: With Family - CARDIAC Hx Hypertension: Yes - PULMONARY Hx Respiratory Disorders: Yes Other/Comment: Acute respiratory failure with intubation/ extubation - NEUROLOGICAL Hx Neurological Disorder: Yes HX Cerebrovascular Accident: Yes (Subaracnoid hemorrhage) Other/Comment: Third nerve Palsy - HEENT Hx HEENT Problems: Yes Other/Comment: Right eye Ptosis - RENAL Hx Chronic Kidney Disease: No - ENDOCRINE/METABOLIC Hx Endocrine Disorders: No - HEMATOLOGICAL/ONCOLOGICAL Hx Anemia: Yes - INTEGUMENTARY Hx Dermatological Problems: No - MUSCULOSKELETAL/RHEUMATOLOGICAL Hx Arthritis: Yes - GASTROINTESTINAL Hx Gastrointestinal Disorders: No - GENITOURINARY/GYNECOLOGICAL Hx Genitourinary Disorders: No - PSYCHIATRIC Hx Psychophysiologic Disorder: No Hx Substance Use: No - SURGICAL HISTORY Hx Surgeries: Yes Other/Comment: Cerebral Ventriculostomy cath with distal tip terminating in Right frontal horn and embolization coiling. TOOL REPAIRER shunt - ANESTHESIA Hx Anesthesia: Yes Hx Anesthesia Reactions: No Meds Allergies/Adverse Reactions: Allergies Allergy/AdvReac Type Severity Reaction Status Date / Time No Known Allergies Allergy Verified 12/07/16 21:19 - Medications Medications: Current Medications Acetaminophen (Tylenol 325mg Tab) 650 mg PO Q4 PRN PRN Reason: Fever >100.4 F Acetaminophen (Tylenol 325mg Tab) 650 mg PO Q6 PRN PRN Reason: mild pain 1-3, headache, fever Last Admin: 12/10/16 22:15 Dose: 650 mg Artificial Tears (Artificial Tears) 1 drop OU QD6 [facility] Last Admin: 12/10/16 17:04 Dose: Not Given Carvedilol (Coreg) 3.125 mg PO Q12 [facility] Last Admin: 12/10/16 21:49 Dose: 3.125 mg Docusate Sodium (Colace) 100 mg PO BID [facility] Last Admin: 12/10/16 16:38 Dose: 100 mg Enoxaparin Sodium (Lovenox) 40 mg SC DAILY [facility] PRN Reason: Protocol Last Admin: 12/10/16 08:43 Dose: 40 mg Pantoprazole Sodium (Protonix Ec Tab) 40 mg PO DAILY [facility] Last Admin: 12/10/16 08:43 Dose: 40 mg Sennosides (Senokot Tab) 8.6 mg PO DAILY [facility] Last Admin: 12/10/16 08:44 Dose: 8.6 mg Sodium Chloride (Sodium Chloride Tab) 1 gm PO TID [facility] Last Admin: 12/10/16 16:36 Dose: 1 gm Topiramate (Topamax) 25 mg PO Q12 [facility] Last Admin: 12/10/16 21:48 Dose: 25 mg Physical Exam - Neurological Exam Additional comments: Patient is lying down in bed peacefully, she is interactive. Mental Status: Awake, alert, disoriented to place, oriented to time, knows we are in 2017, oriented to person as she is oriented to her daughter. She does not know who is the president and thinks it is Obama and needs to be helped to say Trump. Speech is non fluent, non Coherent. 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 She is not seeing with the left eye. no facial asymmetry, tongue is central shrugging her shoulders. Motor: Normal Right side tone and reduced left Upper Extremity tone, with mild left Pronator Drift Left LE tone is low normal and power is slightly reduced. DTR is 0/4 Toes are up going on the left side. Sensory: Reduced on the left side UE and LE and reduced Glove and Stoke bilaterally peripherally in both UEs and LEs. Cerebellar: Normal Right FNT Unable to assess HST and can't Tandem walk. Stature and Gait: Reported to walk with a walker and excessive help. Results - Vital Signs Recent Vital Signs: Last Vital Signs Temp 98.4 F 12/10/16 20:09 Pulse 76 12/10/16 21:49 Resp 20 12/10/16 20:09 BP 120/59 L 12/10/16 21:49 Pulse Ox 97 12/10/16 20:09 - Labs Result Diagrams: 12/08/16 05:30 12/08/16 05:30 Assessment & Plan (1) Coma Assessment and Plan: Her Coma was transient and was well controlled. Status: Acute (2) Subarachnoid hemorrhage Assessment and Plan: Cerebral Aneurysm causing her SAH was successfully clogged and embolized by a Coil. Status: Acute (3) Seizures Assessment and Plan: Patient may have seizures at any time and needs to be covered with AED. She is already on Topamax. Will get an EEG. Status: Acute
[2016-12-11 07:37] LABS: HEMATOCRIT 30.6 % (34.0-47.0); MEAN CELL VOLUME 91.4 fl (81.0-99.0); MEAN CORPUSCULAR HEMOGLOBIN 30.3 pg (27.0-31.0); MEAN CORPUSCULAR HGB CONC 33.2 g/dL (33.0-37.0); RED CELL DISTRIBUTION WIDTH 16.2 % (11.5-14.5); WHITE BLOOD COUNT 2.8 K/uL (4.8-10.8)
[2016-12-11 08:00] LABS: CHOLESTEROL 202 mg/dL (0-199)
[2016-12-11] MEDS: Enoxaparin 40 mg Syringe SC SCH (09:17)
[2016-12-11] MEDS: Pantoprazole 40 mg EC Tab PO SCH (09:22)
--- NOTE | 2016-12-11 09:30 | US ---
PROCEDURE: Carotid vertebral duplex sonography HISTORY: CVA COMPARISON: None TECHNIQUE: Grayscale, color Doppler and spectral Doppler assessment of the carotid system bilaterally. This includes common carotid, internal carotid arteries Vertebral artery assessment with respect to direction of flow (antegrade or retrograde) FINDINGS: RIGHT carotid system: Assessment of plaque: Heterogeneous plaque formation. Peak systolic ICA velocity: 112 cm/sec End-diastolic velocity: 36 cm/sec ICA/CCA ratio: 2.2 Vertebral artery flow: Antegrade LEFT carotid system: Assessment of plaque: Heterogeneous plaque formation. Peak systolic ICA velocity: 104 cm/sec End-diastolic velocity: 39 cm/sec ICA/CCA ratio: 1.7 Vertebral artery flow: Antegrade IMPRESSION: Right ICA degree of stenosis: Less than 50% Left ICA degree of stenosis: Less than 50% Reference Internal Carotid Artery (ICA) Peak Systolic Velocity (PSV) for above: 1. Less than 50% stenosis less than 125 cm/s peak systolic velocity 2. 50-69% stenosis 125-230cm/s peak systolic velocity 3. Greater than 70% but less than near occlusion greater than 230 cm/s peak systolic velocity
--- NOTE | 2016-12-11 11:57 | CP.PCM.PN ---
Subjective - Date & Time of Evaluation Date of Evaluation: 12/11/16 Time of Evaluation: 11:40 - Subjective Subjective: Hospitalist Progress Note (Patient was seen and examined at 11:40 AM 12/11/16 626 [phone] with the help of PT Nanda (who translated) and PT Nilda) 70 year old female who was admitted to Acute Rehab at [facility] on 12/07/16 from [facility] where she presented on 11/18/16 after she was found on the floor by her family (Daughter Bria [phone] whom she is visiting from the [place] where patient lives with Son) and had left facial droop. She was found to have a SubArachnoid Hemorrhage secondary to Aneurysmal Bleeding and she underwent ventriculostomy and catheter with distal tip terminating in right frontal horn with embolization and coiling was done by the Neurosurgeon Dr. Sg Gomez. She was also treated at [facility] for Pancreatitis and Acute Cardiomyopathy. She was admitted to Acute Rehab for PT/OT. CT Abdomen/Pelvis 11/27/16: 1. Subtle inflammatory change in the pancreticoduodenal groove, suspicious for groove pancreatitis. 2. Small pericardial effusion 3. Small right and trace left pleural effusions. Atelectasis vs scaring in the right minor fissure. 4. Subcentimeter hepatic lesion, statistically a cyst. Echocardiogram 11/30/16: 1. EF 55% 2. Aneurysm of base of mid anterolateral wall; smaller than previous study. Carotid U/S 12/11/16: Bilateral < 50% Stenosis of ICA ROS: Bitemporal MO in the AM and PM responsive to Tylenol Blurriness of vision and Diplopia if both eyes open. Can see color out of left eye but can't isolate movement, can't read or make out shapes from left eye Unsteadiness while on feet that is slowly improving, able to use walker NO abdominal pain, NO n/v/d/c, Tolerating her meals without any issues NO other complaints upon FULL ROS Exam: General: AAO X 3, NAD HEENT: Left Eye Ptosis and patient unable to lift left eyelid, Both Pupils are around but the Right smaller than Left, Both Pupils reactive to light and accomodation but the Left more sluggishly, RIght Eye EOMI but not on the Left, NO cervical lymphadenopathy, NO thyromegaly, NO Pharyngeal erythema/exudate, Oral Mucosa and Nasal Turbinates are moist Cardiology: NS1 and NS2, NO M/R/G Respiratory: CTA B/L, NO R/R/W GI: BSx4, Soft, NT, ND, NO HSM, NO guarding/rebound tenderness Extremities: Pulses are strong and equal, Capillar Refill is 2 seconds, NO edema Neurology: Please see HEENT, 5/5 strength bilateral UE and LE with flexion and extension, 2/4 DTR bilateral UE and LE Assessment and Plan 1). Subarachnoid Hemorrhage S/P Ventriculostomy (catheter with distal tip terminating in Right Frontal Horn) with Embolization/Coiling Nursing staff in Acute Rehab has contacted Neurosurgeon Dr. Gomez's office for F/ U plan and medications: awaiting call back Neurologist Dr. Snider has seen patient and has recommended EEG which has been ordered and will need to be followed up. PT/OT Topamax 25 mg PO Q12H 2). Hyponatremia NaCl 1 gram tab PO TID Na on 12/08/16 was 139 and repeat CMP has been ordered for 12/12/16. 3). Hx HTN Coreg 3.125 mg PO Q12H Blood Pressure is controlled 4). Anemia likely Secondary to Subarachnoid Hemorrhage HgB/Hct are stable on 12/08/16 and 12/11/16 5). Hx Pancreatitis See CT Abd/Pelvis findings above Lipase on 12/08/16 was normal at 241 NO abdominal pain and tolerating diet 6). Hx Acute Cardiomyopathy See Echo findings above Coreg 3.125 mg PO Q12H 7). Prophylactic Measures Tylenol 650 mg PO Q4H PRN Fever and Mild Pain Artificial Tears 1 drop OU Q6H Colace 100 mg PO 2x/day Protonix 40 mg PO 1x/day Senokot 8.6 mg PO 1x/day Objective - Vital Signs/Intake and Output Vital Signs (last 24 hours): Temp Pulse Resp BP Pulse Ox 97.9 F 69 18 122/62 100 12/11/16 09:50 12/11/16 09:50 12/11/16 09:50 12/11/16 09:50 12/11/16 09:50 - Medications Medications: Current Medications Acetaminophen (Tylenol 325mg Tab) 650 mg PO Q4 PRN PRN Reason: Fever >100.4 F Acetaminophen (Tylenol 325mg Tab) 650 mg PO Q6 PRN PRN Reason: mild pain 1-3, headache, fever Last Admin: 12/11/16 09:23 Dose: 650 mg Artificial Tears (Artificial Tears) 1 drop OU QD6 [facility] BEDS AT [facility] Last Admin: 12/10/16 17:04 Dose: Not Given Carvedilol (Coreg) 3.125 mg PO Q12 [facility]S [facility] Last Admin: 12/11/16 09:17 Dose: 3.125 mg Docusate Sodium (Colace) 100 mg PO BID [facility] 234 BEDS AT [facility] Last Admin: 12/11/16 09:21 Dose: 100 mg Pantoprazole Sodium (Protonix Ec Tab) 40 mg PO DAILY [facility]S [facility] Last Admin: 12/11/16 09:22 Dose: 40 mg Sennosides (Senokot Tab) 8.6 mg PO DAILY [facility] 234 BEDS [facility] Last Admin: 12/11/16 09:21 Dose: 8.6 mg Sodium Chloride (Sodium Chloride Tab) 1 gm PO TID [facility] 234 BEDS [facility] Last Admin: 12/11/16 09:17 Dose: 1 gm Topiramate (Topamax) 25 mg PO Q12 [facility]S [facility] Last Admin: 12/11/16 09:21 Dose: 25 mg - Labs Labs: 12/11/16 07:05 12/08/16 05:30 PT 11.4 SECONDS (9.6-11.2) H 12/08/16 05:30 INR 1.10 (0.92-1.08) H 12/08/16 05:30 APTT 29.2 SECONDS (23.3-32.5) 12/08/16 05:30
[2016-12-11] MEDS ORDERED: Oxycodone/Acetaminophen 5/325 mg Tab PO PRN ×2 (11:59→12:00)
--- NOTE | 2016-12-11 12:18 | PSY.TMCNF ---
Nursing - Vital Signs Vital Signs (Last 8 hours): Vital Signs 12/11/16 12/11/16 09:17 09:50 Temperature 97.9 F Pulse Rate 69 69 Respiratory 18 Rate Blood Pressure 122/62 122/62 O2 Sat by Pulse 100 Oximetry Pain: 3 - Medications/Other Issues Comment: Pt at low nutritional risk. goals: Pt to continue to consume at least 75% meals without GI upset x 7-9 days, Pt to have nutrition related labs WNL x 7 -9 days, Pt skin to continue to heal x 7-9 days. Follow-up due on 12/18/2016 - Skin Incision Site: right frontal head i/l with león Incision: León Intact Incision Line Treatment: right frontal head i/l with león;below right side of head i/l with 2 león;behind right ear i/l with 2 león-cleansed with NS, ARTURO;. right side of abdomen with dermabond and 1 suture-reddened - Bladder Management Bladder Pattern: Normal Voiding Method: Bedpan - Bowel Management Bowel Pattern: Normal - Goals/Time Frame Comments: Prec - pt Faroese speaking, seatbelt alarm. "paulette king sugisel" Physical Therapy - Bed Mobility Bed Mobility: Verbal Cues, Contact Guard - Transfers Wheelchair to Mat: Minimal Assistance Sit to Stand: Contact Guard - Ambulation Level of Assistance: Contact Guard, Minimal Assistance Distance (ft.): 100 Assistive Devices: Rolling Walker Comment: CGA with RW. min A with hand held assist - Stair Negotiation Stairs: Level of Assistance: Minimal Assistance Number of Stairs: 6 Handrails: Bilateral - Standing Balance Static Stand: Contact Guard Assist Dynamic Stand: Minimal Assistance - Pain Management Techniques: Medication, Distraction, Inactivity - Insight/Carryover Insight/Carryover: Good - Patient/Family Education Comment: Pt education for increased safety awareness and proper techniques during functional mobility tasks. Pt and family education for role of PT, PT goals, and POC. - Assessment/Plan Assessment: Pt presents with impaired BLE strength, standing balance, and endurance resulting in decreased I with functional mobility tasks. Pt requires CGA/Maco for all functional mobility skills with impaired safety awareness. Pt will benefit from skilled PT intervention to address deficits and progress her towards fdc goals. Pt has supportive family and good motivation during therapy sessions. - Goals Timeframe: 3 weeks Goals: Pt will ascend/descend 14 stairs with one handrail mod I. Pt will ambulate 500 ft without device (I). Bed mobility mod I. SIt < > stand and stand pivot transfers mod I - Provider Therapist: Catherine Kamara PT, DPT License Number: [id number] Occupational Therapy - Arousal/Attention/Orientation Patient Orientation: Person - ADL/IADL Self Feeding: Set-up Help, Contact Guard Grooming: Set-up Help, Contact Guard Bathing-Upper Extremity: Set-up Help, Moderate Assistance Bathing-Lower Extremity: Set-up Help, Moderate Assistance Dressing-Upper Extremity: Verbal Cues, Set-up Help, Minimal Assistance Dressing-Lower Extremity: Verbal Cues, Set-up Help, Moderate Assistance - Sitting Balance Static Sitting: Supervision Dynamic Sitting: Contact Guard Assist - Transfers Wheelchair to Bed Transfers: Contact Guard, Minimal Assistance Toilet Transfers: Minimal Assistance Comment: To trial bathing transfers in future sessions. - Pain Alleviating Techniques: Medication, Distraction, Inactivity - Insight/Carryover Insight/Carryover: Good - Patient/Family Education Comment: Pt education for increased safety awareness and proper techniques during functional mobility tasks. Pt and family education for role of PT, PT goals, and POC. - Assessment/Plan Assessment: Pt presents with impaired BLE strength, standing balance, and endurance resulting in decreased I with functional mobility tasks. Pt requires CGA/Maco for all functional mobility skills with impaired safety awareness. Pt will benefit from skilled PT intervention to address deficits and progress her towards oil heaterman goals. Pt has supportive family and good motivation during therapy sessions. - Goals Timeframe: 3 weeks Goals: Pt will ascend/descend 14 stairs with one handrail mod I. Pt will ambulate 500 ft without device (I). Bed mobility mod I. SIt < > stand and stand pivot transfers mod I - Provider Therapist: Nilda ross License Number: [id number] Speech Therapy - Consult Information Patient on Program: Yes Medical Diagnosis: subarachnoid hemorrhage Treatment Diagnosis: moderate cognitive linguistic deficits - Assessment Expressive Language Impairment: Mild Receptive Language Impairment: Mild Problem Solving Impairment: Moderate Memory Impairment: Moderate - Plan Assessment: Pt presents with impaired BLE strength, standing balance, and endurance resulting in decreased I with functional mobility tasks. Pt requires CGA/Maco for all functional mobility skills with impaired safety awareness. Pt will benefit from skilled PT intervention to address deficits and progress her towards oil heaterman goals. Pt has supportive family and good motivation during therapy sessions. - Provider Therapist: Nanda Robbins License Number: [id number] Recreational Therapy - Participation Participation: Participates in Individual and/or Group Sessions - Attendance Attendance: 3-5 times per week - Activities Leisure Activities: Television - Socialization Level of Socialization: Initiates/interacts freely with care givers and peer - Diversional Time Diversional Time: likes to read, watch television, color - Assessment Assessment/Plan: Pt presents with impaired BLE strength, standing balance, and endurance resulting in decreased I with functional mobility tasks. Pt requires CGA/Maco for all functional mobility skills with impaired safety awareness. Pt will benefit from skilled PT intervention to address deficits and progress her towards oil heaterman goals. Pt has supportive family and good motivation during therapy sessions. - Provider Therapist: Blanquita Hall, [employer]ICER #[id number] Nutrition - Current Diet Current Diet/ Supplement/ Feedings: Regular diet thin liquids - Appetite Percent Meal Consumed: 50-74% - Assessment/Goals/Time Frame Assessment/Goals/Time Frame: Pt at low nutritional risk. goals: Pt to continue to consume at least 75% meals without GI upset x 7-9 days, Pt to have nutrition related labs WNL x 7-9 days, Pt skin to continue to heal x 7-9 days. Follow-up due on 12/18/2016 - Provider Provider: Flora Callejas RD Rehabilitation Plan - Treatment Plan Treatment Plan: Physical Therapy, Occupational Therapy, Speech, Dietary, Patient /Family Education - Discharge Plan Estimated Date of Discharge: 12/21/16 Discharge to: Home
--- NOTE | 2016-12-11 16:22 | CP.PCM.PN ---
Subjective - Date & Time of Evaluation Date of Evaluation: 12/11/16 Time of Evaluation: 16:21 - Subjective Subjective: Patient seen in room with family present and discussed with wilderness guide denies pain or sob left eye ptosis slow gains in therapy at this pace not projected to be able to d/c home and will need LALA Objective - Vital Signs/Intake and Output Vital Signs (last 24 hours): Temp Pulse Resp BP Pulse Ox 97.9 F 84 18 122/62 96 12/11/16 11:00 12/11/16 15:11 12/11/16 11:00 12/11/16 11:00 12/11/16 15:11 - Medications Medications: Current Medications Acetaminophen (Tylenol 325mg Tab) 650 mg PO Q4 PRN PRN Reason: Fever >100.4 F Acetaminophen (Tylenol 325mg Tab) 650 mg PO Q6 PRN PRN Reason: mild pain 1-3, headache, fever Last Admin: 12/11/16 09:23 Dose: 650 mg Artificial Tears (Artificial Tears) 1 drop OU QD6 [facility] Last Admin: 12/10/16 17:04 Dose: Not Given Carvedilol (Coreg) 3.125 mg PO Q12 [facility] Last Admin: 12/11/16 09:17 Dose: 3.125 mg Docusate Sodium (Colace) 100 mg PO BID [facility] Last Admin: 12/11/16 09:21 Dose: 100 mg Oxycodone/Acetaminophen (Percocet 5/325 Mg Tab) 1 tab PO Q4 PRN PRN Reason: Pain, moderate (4-7) Stop: 12/14/16 12:00 Oxycodone/Acetaminophen (Percocet 5/325 Mg Tab) 2 tab PO Q4 PRN PRN Reason: Pain, severe (8-10) Stop: 12/14/16 12:01 Pantoprazole Sodium (Protonix Ec Tab) 40 mg PO DAILY [facility] Last Admin: 12/11/16 09:22 Dose: 40 mg Sennosides (Senokot Tab) 8.6 mg PO DAILY [facility] Last Admin: 12/11/16 09:21 Dose: 8.6 mg Sodium Chloride (Sodium Chloride Tab) 1 gm PO TID [facility] Last Admin: 12/11/16 12:35 Dose: 1 gm Topiramate (Topamax) 25 mg PO Q12 [facility] Last Admin: 12/11/16 09:21 Dose: 25 mg - Labs Labs: 12/11/16 07:05 12/08/16 05:30 PT 11.4 SECONDS (9.6-11.2) H 12/08/16 05:30 INR 1.10 (0.92-1.08) H 12/08/16 05:30 APTT 29.2 SECONDS (23.3-32.5) 12/08/16 05:30
[2016-12-11] MEDS: Artificial Tears Opht Soln OU SCH (17:05)
[2016-12-12 08:21] LABS: ALB/GLOB RATIO 1.1 (1.0-2.1); ALKALINE PHOSPHATASE 154 U/L (38-126); ALT/SGPT 26 U/L (9-52); AST/SGOT 45 U/L (14-36); BILIRUBIN,TOTAL 0.4 mg/dl (0.2-1.3); BLOOD UREA NITROGEN 15 mg/dl (7-17); CALCIUM 9.1 mg/dL (8.4-10.2); CARBON DIOXIDE 25 mmol/L (22-30); CHLORIDE 106 mmol/L (98-107); GFR AFRICAN-AMERICAN > 60; GLUCOSE,RANDOM 88 mg/dL (65-105); POTASSIUM 4.1 MMOL/L (3.6-5.0); SODIUM 143 mmol/l (132-148); TOTAL PROTEIN 6.7 G/DL (6.3-8.2)
[2016-12-12] MEDS: Ergocalciferol 50,000 Intl Units Cap PO SCH (09:07)
[2016-12-12] MEDS: Pantoprazole 40 mg EC Tab PO SCH (09:08)
--- NOTE | 2016-12-12 14:57 | EEG ---
DATE: 12/11/2016 The record is obtained to rule out seizures, rule out encephalopathy. The record was obtained while the patient was awake and drowsy. The record was noted to be equal on both sides with velocity of 8 cycles per second. Waves are fairly formed, fairly organized with a posterior distribution, moderate in amplitude, reactive to eye opening by attenuation. There are no abnormal discharges. No spike, no polyspike, no sharp wave, no focal slowing, no paroxysmal discharge. The record did not show any changes with photic stimulation. The hyperventilation was omitted. There are periods of drowsiness during which attenuation and slowing of the record were seen and theta waves were seen. There were n o periods of sleep that were seen. There were eye movement artifact, electrode artifact, and muscle movement artifacts. Photic stimulation was performed and did not produce any changes. Hyperventilat ion was omitted. In sum, this is a normal awake and drowsy EEG. Clinical correlation is recommended. Erika Snider MD cc: [id number] TT: 12/12/2016 00:46:54 Confirmation # [id number] Dictation # [id number]
[2016-12-12] MEDS: Artificial Tears Opht Soln OU SCH (17:16)
--- NOTE | 2016-12-12 19:13 | CP.PCM.PN ---
Subjective - Date & Time of Evaluation Date of Evaluation: 12/12/16 Time of Evaluation: 12:00 - Subjective Subjective: no acute complaint at present feel she is getting stronger Objective - Vital Signs/Intake and Output Vital Signs (last 24 hours): Temp Pulse Resp BP Pulse Ox 97.2 F L 79 18 117/87 99 12/12/16 16:01 12/12/16 16:01 12/12/16 16:01 12/12/16 16:01 12/12/16 15:18 - Medications Medications: Current Medications Acetaminophen (Tylenol 325mg Tab) 650 mg PO Q4 PRN PRN Reason: Fever >100.4 F Acetaminophen (Tylenol 325mg Tab) 650 mg PO Q6 PRN PRN Reason: mild pain 1-3, headache, fever Last Admin: 12/12/16 17:26 Dose: 650 mg Artificial Tears (Artificial Tears) 1 drop OU QD6 [facility] Last Admin: 12/12/16 17:16 Dose: 1 drop Carvedilol (Coreg) 3.125 mg PO Q12 [facility] Last Admin: 12/12/16 09:07 Dose: 3.125 mg Docusate Sodium (Colace) 100 mg PO BID [facility] Last Admin: 12/12/16 17:16 Dose: 100 mg Ergocalciferol (Drisdol 50,000 Intl Units Cap) 1 cap PO Q7D [facility] Stop: 01/30/17 09:00 Last Admin: 12/12/16 09:07 Dose: 1 cap Oxycodone/Acetaminophen (Percocet 5/325 Mg Tab) 1 tab PO Q4 PRN PRN Reason: Pain, moderate (4-7) Stop: 12/14/16 12:00 Oxycodone/Acetaminophen (Percocet 5/325 Mg Tab) 2 tab PO Q4 PRN PRN Reason: Pain, severe (8-10) Stop: 12/14/16 12:01 Pantoprazole Sodium (Protonix Ec Tab) 40 mg PO DAILY [facility] Last Admin: 12/12/16 09:08 Dose: 40 mg Sennosides (Senokot Tab) 8.6 mg PO DAILY [facility] Last Admin: 12/12/16 09:09 Dose: 8.6 mg Sodium Chloride (Sodium Chloride Tab) 1 gm PO TID [facility] Last Admin: 12/12/16 17:15 Dose: 1 gm Topiramate (Topamax) 25 mg PO Q12 [facility] Last Admin: 12/12/16 09:07 Dose: 25 mg - Labs Labs: 12/11/16 07:05 12/12/16 07:00 PT 11.4 SECONDS (9.6-11.2) H 12/08/16 05:30 INR 1.10 (0.92-1.08) H 12/08/16 05:30 APTT 29.2 SECONDS (23.3-32.5) 12/08/16 05:30 - Head Exam Head Exam: ATRAUMATIC, NORMAL INSPECTION, NORMOCEPHALIC - Eye Exam Eye Exam: EOMI, Normal appearance - ENT Exam ENT Exam: Mucous Membranes Moist - Respiratory Exam Respiratory Exam: NORMAL BREATHING PATTERN - Cardiovascular Exam Cardiovascular Exam: REGULAR RHYTHM - GI/Abdominal Exam GI & Abdominal Exam: Soft - Rectal Exam Rectal Exam: NORMAL INSPECTION - Exam External exam: NORMAL EXTERNAL EXAM - Extremities Exam Extremities Exam: Normal Capillary Refill - Back Exam Back Exam: NORMAL INSPECTION - Neurological Exam Neurological Exam: Alert, Awake Neuro motor strength exam: Left Upper Extremity: 4, Right Upper Extremity: 3, Left Lower Extremity: 4, Right Lower Extremity: 3 - Psychiatric Exam Psychiatric exam: Normal Affect - Skin Skin Exam: Normal Color - Additional Findings Additional findings: left pytosis Assessment and Plan (1) Subarachnoid hemorrhage Assessment & Plan: physical, occupational , rec and speech therapy program Status: Acute
[2016-12-13] MEDS: Pantoprazole 40 mg EC Tab PO SCH (08:54)
--- NOTE | 2016-12-13 12:05 | CP.PCM.PN ---
Subjective - Date & Time of Evaluation Date of Evaluation: 12/13/16 Time of Evaluation: 10:00 - Subjective Subjective: no acute complaints of pain Objective - Vital Signs/Intake and Output Vital Signs (last 24 hours): Temp Pulse Resp BP Pulse Ox 98.4 F 97 H 20 120/63 100 12/13/16 08:14 12/13/16 10:06 12/13/16 08:14 12/13/16 08:54 12/13/16 10:06 - Medications Medications: Current Medications Acetaminophen (Tylenol 325mg Tab) 650 mg PO Q4 PRN PRN Reason: Fever >100.4 F Acetaminophen (Tylenol 325mg Tab) 650 mg PO Q6 PRN PRN Reason: mild pain 1-3, headache, fever Last Admin: 12/12/16 17:26 Dose: 650 mg Artificial Tears (Artificial Tears) 1 drop OU QD6 [facility] Last Admin: 12/12/16 17:16 Dose: 1 drop Carvedilol (Coreg) 3.125 mg PO Q12 [facility] Last Admin: 12/13/16 08:54 Dose: 3.125 mg Docusate Sodium (Colace) 100 mg PO BID [facility] Last Admin: 12/13/16 08:54 Dose: 100 mg Ergocalciferol (Drisdol 50,000 Intl Units Cap) 1 cap PO Q7D [facility] Stop: 01/30/17 09:00 Last Admin: 12/12/16 09:07 Dose: 1 cap Oxycodone/Acetaminophen (Percocet 5/325 Mg Tab) 1 tab PO Q4 PRN PRN Reason: Pain, moderate (4-7) Stop: 12/14/16 12:00 Oxycodone/Acetaminophen (Percocet 5/325 Mg Tab) 2 tab PO Q4 PRN PRN Reason: Pain, severe (8-10) Stop: 12/14/16 12:01 Pantoprazole Sodium (Protonix Ec Tab) 40 mg PO DAILY [facility] Last Admin: 12/13/16 08:54 Dose: 40 mg Sennosides (Senokot Tab) 8.6 mg PO DAILY [facility] Last Admin: 12/13/16 08:54 Dose: Not Given Sodium Chloride (Sodium Chloride Tab) 1 gm PO TID [facility] Last Admin: 12/13/16 08:55 Dose: 1 gm Topiramate (Topamax) 25 mg PO Q12 [facility] Last Admin: 12/13/16 08:55 Dose: 25 mg - Labs Labs: 12/11/16 07:05 12/12/16 07:00 PT 11.4 SECONDS (9.6-11.2) H 12/08/16 05:30 INR 1.10 (0.92-1.08) H 12/08/16 05:30 APTT 29.2 SECONDS (23.3-32.5) 12/08/16 05:30 - Head Exam Head Exam: ATRAUMATIC, NORMAL INSPECTION, NORMOCEPHALIC - Eye Exam Eye Exam: EOMI, Normal appearance, PERRL Pupil Exam: NORMAL ACCOMODATION - ENT Exam ENT Exam: Mucous Membranes Moist, Normal Exam - Respiratory Exam Respiratory Exam: NORMAL BREATHING PATTERN - Cardiovascular Exam Cardiovascular Exam: REGULAR RHYTHM - GI/Abdominal Exam GI & Abdominal Exam: Soft, Hyperactive Bowel Sounds - Exam Exam: NORMAL INSPECTION External exam: NORMAL EXTERNAL EXAM - Extremities Exam Extremities Exam: Normal Capillary Refill, Normal Inspection - Back Exam Back Exam: NORMAL INSPECTION - Neurological Exam Neurological Exam: Alert, Awake Neuro motor strength exam: Left Upper Extremity: 4, Right Upper Extremity: 3, Left Lower Extremity: 4, Right Lower Extremity: 3 - Psychiatric Exam Psychiatric exam: Normal Affect, Normal Mood - Skin Skin Exam: Dry, Intact, Normal Color Assessment and Plan (1) Subarachnoid hemorrhage Assessment & Plan: plan for physical, occupational and rec therapy also continue with speech and monitor vitals and skin Status: Acute
--- NOTE | 2016-12-13 17:19 | CP.PCM.PN ---
Subjective - Date & Time of Evaluation Date of Evaluation: 12/13/16 Time of Evaluation: 14:00 - Subjective Subjective: Pt seen and examined. Denied any complaint Objective - Vital Signs/Intake and Output Vital Signs (last 24 hours): Temp Pulse Resp BP Pulse Ox 97.9 F 79 20 122/76 98 12/13/16 16:01 12/13/16 16:01 12/13/16 16:01 12/13/16 16:01 12/13/16 16:01 - Medications Medications: Current Medications Acetaminophen (Tylenol 325mg Tab) 650 mg PO Q4 PRN PRN Reason: Fever >100.4 F Acetaminophen (Tylenol 325mg Tab) 650 mg PO Q6 PRN PRN Reason: mild pain 1-3, headache, fever Last Admin: 12/12/16 17:26 Dose: 650 mg Artificial Tears (Artificial Tears) 1 drop OU QD6 [facility] Last Admin: 12/12/16 17:16 Dose: 1 drop Carvedilol (Coreg) 3.125 mg PO Q12 [facility] Last Admin: 12/13/16 08:54 Dose: 3.125 mg Docusate Sodium (Colace) 100 mg PO BID [facility] Last Admin: 12/13/16 16:19 Dose: 100 mg Ergocalciferol (Drisdol 50,000 Intl Units Cap) 1 cap PO Q7D [facility] Stop: 01/30/17 09:00 Last Admin: 12/12/16 09:07 Dose: 1 cap Oxycodone/Acetaminophen (Percocet 5/325 Mg Tab) 1 tab PO Q4 PRN PRN Reason: Pain, moderate (4-7) Stop: 12/14/16 12:00 Oxycodone/Acetaminophen (Percocet 5/325 Mg Tab) 2 tab PO Q4 PRN PRN Reason: Pain, severe (8-10) Stop: 12/14/16 12:01 Pantoprazole Sodium (Protonix Ec Tab) 40 mg PO DAILY [facility] Last Admin: 12/13/16 08:54 Dose: 40 mg Sennosides (Senokot Tab) 8.6 mg PO DAILY [facility] Last Admin: 12/13/16 08:54 Dose: Not Given Sodium Chloride (Sodium Chloride Tab) 1 gm PO TID [facility] Last Admin: 12/13/16 16:20 Dose: 1 gm Topiramate (Topamax) 25 mg PO Q12 [facility] Last Admin: 12/13/16 08:55 Dose: 25 mg - Labs Labs: 12/11/16 07:05 12/12/16 07:00 PT 11.4 SECONDS (9.6-11.2) H 12/08/16 05:30 INR 1.10 (0.92-1.08) H 12/08/16 05:30 APTT 29.2 SECONDS (23.3-32.5) 12/08/16 05:30 - Constitutional Appears: No Acute Distress - Head Exam Head Exam: ATRAUMATIC - Eye Exam Eye Exam: absent: Normal appearance (ptosis of left eyelid) - ENT Exam ENT Exam: Mucous Membranes Moist - Neck Exam Neck Exam: absent: Meningismus - Respiratory Exam Respiratory Exam: absent: Rhonchi, Wheezes, Respiratory Distress - Cardiovascular Exam Cardiovascular Exam: REGULAR RHYTHM, +S1, +S2 - GI/Abdominal Exam GI & Abdominal Exam: Soft. absent: Tenderness - Rectal Exam Rectal Exam: Deferred - Neurological Exam Neurological Exam: Alert, Oriented x3 - Psychiatric Exam Psychiatric exam: Normal Affect - Skin Skin Exam: Dry, Intact Assessment and Plan (1) Subarachnoid hemorrhage Status: Acute (2) HTN (hypertension) Status: Chronic (3) Pancreatitis Status: Resolved - Assessment and Plan (Free Text) Assessment: 70 yo female admitted on 11/18/16 after she was found unresponsive with left facial droop. Imaging showed subdural hematoma secondary to bleeding aneurysm. Patient was transferred to [facility] where embolization and coiling of ruptured aneurysm was done. Upon stabilization of patient's condition, she was transferred back to acute rehab for therapy. 1. Subarachnoid Hemorrhage s/p embolism of ruptured and coiling of intracraneal aneurysm s/p REHABILITATION THERAPY TECHNICIAN shunt placement continue PT/OT 2. HTN BP stable continue Coreg - Monitor Vital signs 3. Pancreatitis resolved
[2016-12-13] MEDS: Artificial Tears Opht Soln OU SCH (19:10)
[2016-12-14] MEDS: Pantoprazole 40 mg EC Tab PO SCH (08:33)
[2016-12-14] MEDS: Artificial Tears Opht Soln OU SCH (18:08)
[2016-12-15] MEDS: Pantoprazole 40 mg EC Tab PO SCH (08:34)
[2016-12-15] MEDS: Artificial Tears Opht Soln OU SCH (17:32)
--- NOTE | 2016-12-15 22:57 | CP.PCM.PN ---
Subjective - Date & Time of Evaluation Date of Evaluation: 12/15/16 Time of Evaluation: 20:00 - Subjective Subjective: There is a remarkable improvement in her walking, as she walks without significant help for few steps. She is receiving Rehab. 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 Her cognition is significantly affected and has disorientation to time and a non fluent non coherent speech. No seizures are reported. Increase the Topamax from 25 mg Q12 hrs to 50 mg Q12 hrs. Objective - Vital Signs/Intake and Output Vital Signs (last 24 hours): Temp Pulse Resp BP Pulse Ox 97.9 F 75 20 118/63 97 12/15/16 20:05 12/15/16 21:49 12/15/16 20:05 12/15/16 21:49 12/15/16 20:05 - Medications Medications: Current Medications Acetaminophen (Tylenol 325mg Tab) 650 mg PO Q4 PRN PRN Reason: Fever >100.4 F Acetaminophen (Tylenol 325mg Tab) 650 mg PO Q6 PRN PRN Reason: mild pain 1-3, headache, fever Last Admin: 12/12/16 17:26 Dose: 650 mg Artificial Tears (Artificial Tears) 1 drop OU QD6 [facility] Last Admin: 12/15/16 17:32 Dose: 1 drop Carvedilol (Coreg) 3.125 mg PO Q12 [facility] Last Admin: 12/15/16 21:49 Dose: 3.125 mg Docusate Sodium (Colace) 100 mg PO BID [facility] Last Admin: 12/15/16 16:37 Dose: Not Given Ergocalciferol (Drisdol 50,000 Intl Units Cap) 1 cap PO Q7D [facility] Stop: 01/30/17 09:00 Last Admin: 12/12/16 09:07 Dose: 1 cap Pantoprazole Sodium (Protonix Ec Tab) 40 mg PO DAILY [facility] Last Admin: 12/15/16 08:34 Dose: 40 mg Sennosides (Senokot Tab) 8.6 mg PO DAILY [facility] Last Admin: 12/15/16 08:35 Dose: 8.6 mg Sodium Chloride (Sodium Chloride Tab) 1 gm PO TID [facility] Last Admin: 12/15/16 16:36 Dose: 1 gm Topiramate (Topamax) 50 mg PO Q12 [facility] - Labs Labs: 12/11/16 07:05 12/12/16 07:00 PT 11.4 SECONDS (9.6-11.2) H 12/08/16 05:30 INR 1.10 (0.92-1.08) H 12/08/16 05:30 APTT 29.2 SECONDS (23.3-32.5) 12/08/16 05:30 Assessment and Plan (1) Coma Status: Acute (2) Subarachnoid hemorrhage Status: Chronic (3) Seizures Status: Acute
[2016-12-16] MEDS: Pantoprazole 40 mg EC Tab PO SCH (08:22)
--- NOTE | 2016-12-16 17:05 | CP.PCM.PN ---
Subjective - Date & Time of Evaluation Date of Evaluation: 12/16/16 Time of Evaluation: 17:00 - Subjective Subjective: Hospitalist Progress Note (Patient was seen and examined at 5:00 PM 12/16/16 626- 1) 70 year old female who was admitted to Acute Rehab at [facility] on 12/07/16 from [facility] where she presented on 11/18/16 after she was found on the floor by her family (Daughter Bria [phone] whom she is visiting from the [place] where patient lives with Son) and had left facial droop. She was found to have a SubArachnoid Hemorrhage secondary to Aneurysmal Bleeding and she underwent ventriculostomy and catheter with distal tip terminating in right frontal horn with embolization and coiling was done by the Neurosurgeon Dr. Sg Gomez. She was also treated at [facility] for Pancreatitis and Acute Cardiomyopathy. She was admitted to Acute Rehab for PT/OT. CT Abdomen/Pelvis 11/27/16: 1. Subtle inflammatory change in the pancreticoduodenal groove, suspicious for groove pancreatitis. 2. Small pericardial effusion 3. Small right and trace left pleural effusions. Atelectasis vs scaring in the right minor fissure. 4. Subcentimeter hepatic lesion, statistically a cyst. Echocardiogram 11/30/16: 1. EF 55% 2. Aneurysm of base of mid anterolateral wall; smaller than previous study. Carotid U/S 12/11/16: Bilateral < 50% Stenosis of ICA ROS: Abdominal cramping that comes and goes (could be related to the Senokot and therefore it was discontinued 12/16/16) Moved bowels NO headaches NO new changes in vision NO n/v NO new changes in vision/hearing NO other complaints upon FULL ROS Exam: General: AAO X 3, NAD HEENT: Left Eye Ptosis and patient unable to lift left eyelid, Both Pupils are around but the Right smaller than Left, Both Pupils reactive to light and accomodation but the Left more sluggishly, RIght Eye EOMI but not on the Left, NO cervical lymphadenopathy, NO thyromegaly, NO Pharyngeal erythema/exudate, Oral Mucosa and Nasal Turbinates are moist Cardiology: NS1 and NS2, NO M/R/G Respiratory: CTA B/L, NO R/R/W GI: BSx4, Soft, NT, ND, NO HSM, NO guarding/rebound tenderness Extremities: Pulses are strong and equal, Capillar Refill is 2 seconds, NO edema Neurology: Please see HEENT, 5/5 strength bilateral UE and LE with flexion and extension, 2/4 DTR bilateral UE and LE Skin Scalp: Surgical Micanopy intact Right Parietal area without signs of cellulitis Assessment and Plan 1). Subarachnoid Hemorrhage S/P Ventriculostomy (catheter with distal tip terminating in Right Frontal Horn) with Embolization/Coiling Neurosurgeon Dr. Gomez to see patient upon discharge and he will take out surgical shama from scalp as per Nurse Latanya Neurologist Dr. Snider EEG 12/11/16 was normal PT/OT Topamax 50 mg PO Q12H 2). Hx Hyponatremia As repeat CMP 12/12/16 indicated normal Na at 143, the NaCl 1 gm PO TID tablets have been discontinued Monitor the Na 3). Hx HTN Coreg 3.125 mg PO Q12H Blood Pressure is controlled 4). Hx Anemia likely Secondary to Subarachnoid Hemorrhage HgB/Hct are stable on 5). Hx Pancreatitis See CT Abd/Pelvis findings above Lipase on 12/08/16 was normal at 241 NO abdominal pain and tolerating diet 6). Hx Acute Cardiomyopathy See Echo findings above Coreg 3.125 mg PO Q12H 7). Prophylactic Measures Tylenol 650 mg PO Q4H PRN Fever and Mild Pain Artificial Tears 1 drop OU Q6H Colace 100 mg PO 2x/day Protonix 40 mg PO 1x/day F/U repeat CMP, CBC, and Lipase 12/17/16 Objective - Vital Signs/Intake and Output Vital Signs (last 24 hours): Temp Pulse Resp BP Pulse Ox 96.1 F L 73 18 100/55 L 100 12/16/16 16:17 12/16/16 16:17 12/16/16 16:17 12/16/16 16:17 12/16/16 16:17 - Medications Medications: Current Medications Acetaminophen (Tylenol 325mg Tab) 650 mg PO Q4 PRN PRN Reason: Fever >100.4 F Acetaminophen (Tylenol 325mg Tab) 650 mg PO Q6 PRN PRN Reason: mild pain 1-3, headache, fever Last Admin: 12/16/16 08:22 Dose: 650 mg Artificial Tears (Artificial Tears) 1 drop OU QD6 [facility] Last Admin: 12/15/16 17:32 Dose: 1 drop Carvedilol (Coreg) 3.125 mg PO Q12 [facility] Last Admin: 12/16/16 08:23 Dose: Not Given Docusate Sodium (Colace) 100 mg PO BID [facility] Last Admin: 12/16/16 08:24 Dose: 100 mg Ergocalciferol (Drisdol 50,000 Intl Units Cap) 1 cap PO Q7D [facility] Stop: 01/30/17 09:00 Last Admin: 12/12/16 09:07 Dose: 1 cap Pantoprazole Sodium (Protonix Ec Tab) 40 mg PO DAILY [facility] Last Admin: 12/16/16 08:22 Dose: 40 mg Sennosides (Senokot Tab) 8.6 mg PO DAILY [facility] Last Admin: 12/16/16 08:31 Dose: Not Given Sodium Chloride (Sodium Chloride Tab) 1 gm PO TID [facility] Last Admin: 12/16/16 13:17 Dose: 1 gm Topiramate (Topamax) 50 mg PO Q12 [facility] Last Admin: 12/16/16 08:23 Dose: 50 mg - Labs Labs: 12/11/16 07:05 12/12/16 07:00 PT 11.4 SECONDS (9.6-11.2) H 12/08/16 05:30 INR 1.10 (0.92-1.08) H 12/08/16 05:30 APTT 29.2 SECONDS (23.3-32.5) 12/08/16 05:30
[2016-12-16] MEDS: Artificial Tears Opht Soln OU SCH (17:07)
[2016-12-17 06:18] LABS: BASO % 0.6 % (0.0-2.0); EOS % 1.4 % (0.0-4.0); HEMATOCRIT 31.5 % (34.0-47.0); LYMPH # 1.2 K/uL (1.0-4.3); MEAN CELL VOLUME 90.7 fl (81.0-99.0); MEAN CORPUSCULAR HEMOGLOBIN 30.3 pg (27.0-31.0); MEAN CORPUSCULAR HGB CONC 33.4 g/dL (33.0-37.0); MEAN PLATELET VOLUME 6.5 fl (7.2-11.7); MONO # 0.4 K/uL (0.0-0.8); MONO % 10.8 % (0.0-10.0); NEUT # 1.7 K/uL (1.8-7.0); NEUT % 51.2 % (50.0-75.0); NRBC % 0.1 % (0.0-0.0); WHITE BLOOD COUNT 3.3 K/uL (4.8-10.8)
[2016-12-17 06:27] LABS: ALB/GLOB RATIO 1.2 (1.0-2.1); ALKALINE PHOSPHATASE 120 U/L (38-126); ALT/SGPT 33 U/L (9-52); AST/SGOT 50 U/L (14-36); BILIRUBIN,TOTAL 0.5 mg/dl (0.2-1.3); BLOOD UREA NITROGEN 12 mg/dl (7-17); CALCIUM 9.8 mg/dL (8.4-10.2); CARBON DIOXIDE 26 mmol/L (22-30); CHLORIDE 109 mmol/L (98-107); GFR AFRICAN-AMERICAN > 60; GLUCOSE,RANDOM 91 mg/dL (65-105); LIPASE 469 U/L (23-300); POTASSIUM 4.5 MMOL/L (3.6-5.0); SODIUM 148 mmol/l (132-148); TOTAL PROTEIN 6.5 G/DL (6.3-8.2)
[2016-12-17] MEDS: Pantoprazole 40 mg EC Tab PO SCH (08:26)
--- NOTE | 2016-12-17 12:13 | CP.PCM.PN ---
Subjective - Date & Time of Evaluation Date of Evaluation: 12/17/16 Time of Evaluation: 09:00 - Subjective Subjective: patient with generalized weakness no complaints except feeling cold Objective - Vital Signs/Intake and Output Vital Signs (last 24 hours): Temp Pulse Resp BP Pulse Ox 97.5 F L 86 19 113/64 97 12/17/16 09:07 12/17/16 09:07 12/17/16 09:07 12/17/16 09:07 12/17/16 09:07 - Medications Medications: Current Medications Acetaminophen (Tylenol 325mg Tab) 650 mg PO Q4 PRN PRN Reason: Fever >100.4 F Acetaminophen (Tylenol 325mg Tab) 650 mg PO Q6 PRN PRN Reason: mild pain 1-3, headache, fever Last Admin: 12/16/16 08:22 Dose: 650 mg Artificial Tears (Artificial Tears) 1 drop OU QD6 [facility] Last Admin: 12/16/16 17:07 Dose: 1 drop Carvedilol (Coreg) 3.125 mg PO Q12 [facility] Last Admin: 12/17/16 08:26 Dose: 3.125 mg Docusate Sodium (Colace) 100 mg PO BID [facility] Last Admin: 12/17/16 08:25 Dose: 100 mg Ergocalciferol (Drisdol 50,000 Intl Units Cap) 1 cap PO Q7D [facility] Stop: 01/30/17 09:00 Last Admin: 12/12/16 09:07 Dose: 1 cap Pantoprazole Sodium (Protonix Ec Tab) 40 mg PO DAILY [facility] Last Admin: 12/17/16 08:26 Dose: 40 mg Topiramate (Topamax) 50 mg PO Q12 [facility] Last Admin: 12/17/16 08:27 Dose: 50 mg - Labs Labs: 12/17/16 05:00 12/17/16 05:00 PT 11.4 SECONDS (9.6-11.2) H 12/08/16 05:30 INR 1.10 (0.92-1.08) H 12/08/16 05:30 APTT 29.2 SECONDS (23.3-32.5) 12/08/16 05:30 - Head Exam Head Exam: ATRAUMATIC, NORMAL INSPECTION, NORMOCEPHALIC - Eye Exam Eye Exam: EOMI, Normal appearance, PERRL Pupil Exam: NORMAL ACCOMODATION - ENT Exam ENT Exam: Mucous Membranes Moist, Normal Exam - Neck Exam Neck Exam: Normal Inspection - Respiratory Exam Respiratory Exam: NORMAL BREATHING PATTERN - Cardiovascular Exam Cardiovascular Exam: REGULAR RHYTHM - GI/Abdominal Exam GI & Abdominal Exam: Soft, Normal Bowel Sounds - Rectal Exam Rectal Exam: NORMAL INSPECTION - Exam External exam: NORMAL EXTERNAL EXAM - Extremities Exam Extremities Exam: Normal Capillary Refill - Back Exam Back Exam: NORMAL INSPECTION - Neurological Exam Neurological Exam: Alert, Awake Neuro motor strength exam: Left Upper Extremity: 4, Right Upper Extremity: 3, Left Lower Extremity: 4, Right Lower Extremity: 3 - Psychiatric Exam Psychiatric exam: Normal Affect, Normal Mood - Skin Skin Exam: Dry, Intact Assessment and Plan (1) Subarachnoid hemorrhage Status: Chronic - Assessment and Plan (Free Text) Assessment: plan for physical, occupational, rec therapy for Rom, strengthening, transfers and gait training
[2016-12-17] MEDS: Artificial Tears Opht Soln OU SCH (17:31)
[2016-12-18] MEDS: Pantoprazole 40 mg EC Tab PO SCH (08:46)
--- NOTE | 2016-12-18 12:24 | PSY.TMCNF ---
Nursing - Vital Signs Vital Signs (Last 8 hours): Vital Signs 12/18/16 12/18/16 12/18/16 07:32 08:46 11:41 Temperature 97.9 F 97.9 F Pulse Rate 71 71 Respiratory 18 18 Rate Blood Pressure 106/57 L 106/57 L 106/57 L O2 Sat by Pulse 100 Oximetry Pain: 0 - Precautions: Precautions: Fall Prevention, Seizure - Medications/Other Issues Comment: COMPLAINING OF ABDOMINAL PAIN, ELEVATED LIPASE, GI CONSULT PENDING - Consults Comment: DR. STRANGE, DR. OTT, DR. PLASENCIA - Skin Incision Site: right frontal head i/l with shama Incision: [place] Intact Incision Line Treatment: right frontal head i/l with shama;below right side of head i/l with 2 shama;behind right ear i/l with 2 shama-cleansed with NS, TALENT ADVISOR;. right side of abdomen with dermabond and 1 suture-reddened - Toileting Toileting: Supervision - Bladder Management Bladder Pattern: Normal Voiding Method: Toilet, Bedpan Bladder Management: Supervision Frequency of Accidents: 0 - Bowel Management Bowel Pattern: Normal Bowel Management: Supervision Frequency of Accidents: 0 - Transfers Transfers: Contact Guard - ADL's ADL's: Minimal Assistance - Pain Management Comments: Tylenol and Percocet PRN Pain - Patient/Family Teaching Comments: Care post surgery, incision care, safety and seizure precautions - Goals/Time Frame Comments: PER MULTIDISCIPLINARY CARE PLAN GOALS Physical Therapy - Bed Mobility Bed Mobility: Supervision, Verbal Cues Comment: CS - Transfers Wheelchair to Mat: Supervision, Verbal Cues Sit to Stand: Supervision, Verbal Cues Comment: CS occ vc for safety, cj hand placement - Ambulation Level of Assistance: Supervision, Verbal Cues Distance (ft.): 200 Assistive Devices: N/A, Crutches Comment: x2, 100' x 2, 300' x 2 CS. occ vc for upright posture, B heel strike and to incr BALJINDER. occ instability w/ turns and obstacles; (+)narrow BALJINDER - Stair Negotiation Stairs: Level of Assistance: Supervision, Verbal Cues, Contact Guard Number of Stairs: 22 Stairs: Assistive Devices: Right Handrail Comment: 8 in steps, step to pattern. pt reports greater difficulty w/ desc secondary to L ptosis - Standing Balance Static Stand: Supervision Dynamic Stand: Contact Guard Assist, Minimal Assistance - Pain Pain (assessed during therapy session): 0 - Insight/Carryover Insight/Carryover: Good - Patient/Family Education Comment: EDU on safety/ vision/ cog/ tranfsers/ ADLS/ balance/ core strength/ AE / DME - edu ongoing. Pt and family education for role of OT and POC - Assessment/Plan Assessment: Pt continues to participate in 1:1 and group recreation therapy sessions. Pt has participated in modified maria ines card task and coloring task. Pt requires less verbal cues for attention to task if she is not fatigued. Pt's participation and motivation limited by fatigue although will tolerate duration of session. Pt continues to demonstrate improvement in mood state and will continue to participate in recreation therapy sessions. - Goals Timeframe: 3 weeks Goals: fxnl amb transfers w mod I. Mod I for all basic ADLs. S for all iADLS - Provider Therapist: JOSÉ LUIS MORH RN CRRN Occupational Therapy - Arousal/Attention/Orientation Patient Orientation: Person, Place, Time - ADL/IADL Self Feeding: Supervision, Set-up Help Grooming: Supervision, Set-up Help Bathing-Upper Extremity: Supervision, Set-up Help, Contact Guard Bathing-Lower Extremity: Set-up Help, Contact Guard Dressing-Upper Extremity: Supervision, Verbal Cues, Set-up Help Dressing-Lower Extremity: Supervision, Verbal Cues, Set-up Help - Sitting Balance Static Sitting: Independent without upper extremity support Dynamic Sitting: Requires supervision - Transfers Wheelchair to Bed Transfers: Supervision, Verbal Cues, Set-up Help, Contact Guard Toilet Transfers: Supervision, Verbal Cues, Set-up Help, Contact Guard Tub Transfers: Not Applicable Comment: S/CGA to/from shower chair in stall shower. - Wheelchair Management Level of Assistance: Not Applicable - Upper Extremity Status Right Upper Extremity Comment: WFL t/o Left Upper Extremity Comment: WFl t/o - Pain Pain (assessed during therapy session): 0 - Insight/Carryover Insight/Carryover: Good - Patient/Family Education Comment: EDU on safety/ vision/ cog/ tranfsers/ ADLS/ balance/ core strength/ AE / DME - edu ongoing. Pt and family education for role of OT and POC - Assessment/Plan Assessment: Pt continues to participate in 1:1 and group recreation therapy sessions. Pt has participated in modified maria ines card task and coloring task. Pt requires less verbal cues for attention to task if she is not fatigued. Pt's participation and motivation limited by fatigue although will tolerate duration of session. Pt continues to demonstrate improvement in mood state and will continue to participate in recreation therapy sessions. - Goals Timeframe: 3 weeks Goals: fxnl amb transfers w mod I. Mod I for all basic ADLs. S for all iADLS - Provider Therapist: chantell ross License Number: [id number] Speech Therapy - Consult Information Patient on Program: Yes Medical Diagnosis: subarachnoid hemorrhage Treatment Diagnosis: mild-moderate cognitive linguistic deficits - Assessment Expressive Language Impairment: Mild Receptive Language Impairment: Mild Problem Solving Impairment: Mild Comment: mild-moderate Memory Impairment: Moderate - Plan Assessment: Pt continues to participate in 1:1 and group recreation therapy sessions. Pt has participated in modified maria ines card task and coloring task. Pt requires less verbal cues for attention to task if she is not fatigued. Pt's participation and motivation limited by fatigue although will tolerate duration of session. Pt continues to demonstrate improvement in mood state and will continue to participate in recreation therapy sessions. - Provider Therapist: Nanda Robbins License Number: [id number] Recreational Therapy - Participation Participation: Participates in Individual and/or Group Sessions - Attendance Attendance: 3-5 times per week - Activities Leisure Activities: Crafts - Socialization Level of Socialization: Initiates/interacts freely with care givers and peer - Diversional Time Diversional Time: likes to read, watch television, color - Assessment Assessment/Plan: Pt continues to participate in 1:1 and group recreation therapy sessions. Pt has participated in modified maria ines card task and coloring task. Pt requires less verbal cues for attention to task if she is not fatigued. Pt's participation and motivation limited by fatigue although will tolerate duration of session. Pt continues to demonstrate improvement in mood state and will continue to participate in recreation therapy sessions. Problems Currently Limiting Participation: weakness, L eye ptosis, language barrier Goals and Time Frame: Pt will be encouraged to participate in 1:1 and group recreation therapy sessions 3-5x week to improve arousal level, leisure awareness level, and command following level. - Provider Therapist: Blanquita Hall, PRE[employer] MANAGER #[id number] Nutrition - Current Diet Current Diet/ Supplement/ Feedings: Regular diet thin liquids - Appetite Percent Meal Consumed: 75-100% - Comments Comments: Care post surgery, incision care, safety and seizure precautions - Assessment/Goals/Time Frame Assessment/Goals/Time Frame: COMPLAINING OF ABDOMINAL PAIN, ELEVATED LIPASE, GI CONSULT PENDING - Provider Provider: Flora Callejas RD Case Management - Psychosocial Assessment Support Systems: Patient's august Mitchell- [phone] Psychological Interventions/Needs: Patient is alert and oriented x3 and able to verbalize needs. Patien primarily Finnish speaking. Translation done via certified Finnish speaking human resource analyst Dianne Marcano. Discharge Concerns: Patient presently requiring min A for bed mobility, transfers and stair negotiation. Patient/Family Meeting: CM met with patient and rehab team. Intervention/Goal/Outcome:: 1. Goal: Supervision overall. 2. Plan: Home with skilled services. 3. DME needs. 4. f/u appts. 5. caregiver training. 6. continued emotional support - Discharge Plan Discharge Plan: Home with services Home Services: [facility] - Provider Provider: SADIE Mcdonald, PRICE LISTER License Number: [id number] Rehabilitation Plan - Treatment Plan Treatment Plan: Physical Therapy, Occupational Therapy, Speech, Dietary, Patient /Family Education - Recommendation Recommendation: Physical Therapy, Occupational Therapy, Dietary, Patient/Family Education - Discharge Plan Discharge to: Home (Dc 22)
--- NOTE | 2016-12-18 14:43 | CP.PCM.PN ---
Subjective - Date & Time of Evaluation Date of Evaluation: 12/18/16 Time of Evaluation: 11:00 - Subjective Subjective: no acute complaints of pain Objective - Vital Signs/Intake and Output Vital Signs (last 24 hours): Temp Pulse Resp BP Pulse Ox 97.9 F 71 18 106/57 L 100 12/18/16 11:41 12/18/16 11:41 12/18/16 11:41 12/18/16 11:41 12/18/16 07:32 - Medications Medications: Current Medications Acetaminophen (Tylenol 325mg Tab) 650 mg PO Q4 PRN PRN Reason: Fever >100.4 F Acetaminophen (Tylenol 325mg Tab) 650 mg PO Q6 PRN PRN Reason: mild pain 1-3, headache, fever Last Admin: 12/16/16 08:22 Dose: 650 mg Artificial Tears (Artificial Tears) 1 drop OU QD6 [facility] Last Admin: 12/17/16 17:31 Dose: 1 drop Carvedilol (Coreg) 3.125 mg PO Q12 [facility] Last Admin: 12/18/16 08:46 Dose: Not Given Docusate Sodium (Colace) 100 mg PO BID [facility] Last Admin: 12/18/16 08:47 Dose: 100 mg Ergocalciferol (Drisdol 50,000 Intl Units Cap) 1 cap PO Q7D [facility] Stop: 01/30/17 09:00 Last Admin: 12/12/16 09:07 Dose: 1 cap Pantoprazole Sodium (Protonix Ec Tab) 40 mg PO DAILY [facility] Last Admin: 12/18/16 08:46 Dose: 40 mg Topiramate (Topamax) 50 mg PO Q12 [facility] Last Admin: 12/18/16 08:47 Dose: 50 mg - Labs Labs: 12/17/16 05:00 12/17/16 05:00 PT 11.4 SECONDS (9.6-11.2) H 12/08/16 05:30 INR 1.10 (0.92-1.08) H 12/08/16 05:30 APTT 29.2 SECONDS (23.3-32.5) 12/08/16 05:30 - Head Exam Head Exam: ATRAUMATIC, NORMAL INSPECTION, NORMOCEPHALIC - Eye Exam Eye Exam: EOMI, Normal appearance, PERRL Pupil Exam: NORMAL ACCOMODATION - ENT Exam ENT Exam: Mucous Membranes Moist, Normal Exam - Respiratory Exam Respiratory Exam: NORMAL BREATHING PATTERN - Cardiovascular Exam Cardiovascular Exam: REGULAR RHYTHM - GI/Abdominal Exam GI & Abdominal Exam: Normal Bowel Sounds - Rectal Exam Rectal Exam: NORMAL INSPECTION - Exam External exam: NORMAL EXTERNAL EXAM - Extremities Exam Extremities Exam: Normal Capillary Refill, Normal Inspection - Back Exam Back Exam: NORMAL INSPECTION - Neurological Exam Neurological Exam: Alert, Awake Neuro motor strength exam: Left Upper Extremity: 3, Right Upper Extremity: 4, Left Lower Extremity: 3, Right Lower Extremity: 4 - Psychiatric Exam Psychiatric exam: Normal Affect, Normal Mood - Skin Skin Exam: Dry, Intact Assessment and Plan (1) Subarachnoid hemorrhage Assessment & Plan: plan for Pt and Ot status post team conference discuussed in team conference also me with family with a lithuanian translater Status: Chronic
[2016-12-18] MEDS: Artificial Tears Opht Soln OU SCH (17:14)
--- NOTE | 2016-12-18 19:44 | CP.PCM.PN ---
Subjective - Date & Time of Evaluation Date of Evaluation: 12/18/16 Time of Evaluation: 14:30 - Subjective Subjective: Pt seen and examined. Denied any complaint. Objective - Vital Signs/Intake and Output Vital Signs (last 24 hours): Temp Pulse Resp BP Pulse Ox 97.7 F 76 18 103/53 L 100 12/18/16 15:34 12/18/16 15:34 12/18/16 15:34 12/18/16 15:34 12/18/16 15:34 - Medications Medications: Current Medications Acetaminophen (Tylenol 325mg Tab) 650 mg PO Q4 PRN PRN Reason: Fever >100.4 F Acetaminophen (Tylenol 325mg Tab) 650 mg PO Q6 PRN PRN Reason: mild pain 1-3, headache, fever Last Admin: 12/18/16 17:13 Dose: 650 mg Artificial Tears (Artificial Tears) 1 drop OU QD6 [facility] Last Admin: 12/18/16 17:14 Dose: 1 drop Carvedilol (Coreg) 3.125 mg PO Q12 [facility] Last Admin: 12/18/16 08:46 Dose: Not Given Docusate Sodium (Colace) 100 mg PO BID [facility] Last Admin: 12/18/16 17:14 Dose: 100 mg Ergocalciferol (Drisdol 50,000 Intl Units Cap) 1 cap PO Q7D [facility] Stop: 01/30/17 09:00 Last Admin: 12/12/16 09:07 Dose: 1 cap Pantoprazole Sodium (Protonix Ec Tab) 40 mg PO DAILY [facility] Last Admin: 12/18/16 08:46 Dose: 40 mg Topiramate (Topamax) 50 mg PO Q12 [facility] Last Admin: 12/18/16 08:47 Dose: 50 mg - Labs Labs: 12/17/16 05:00 12/17/16 05:00 PT 11.4 SECONDS (9.6-11.2) H 12/08/16 05:30 INR 1.10 (0.92-1.08) H 12/08/16 05:30 APTT 29.2 SECONDS (23.3-32.5) 12/08/16 05:30 - Constitutional Appears: No Acute Distress - Head Exam Head Exam: absent: NORMAL INSPECTION (shama intact on right fronto-parietal region, no sign of infection) - Eye Exam Eye Exam: absent: EOMI (ptosis of left eyelid with external deviation) - ENT Exam ENT Exam: Mucous Membranes Moist - Neck Exam Neck Exam: absent: Meningismus - Respiratory Exam Respiratory Exam: absent: Rhonchi, Wheezes, Respiratory Distress - Cardiovascular Exam Cardiovascular Exam: REGULAR RHYTHM, +S1, +S2 - GI/Abdominal Exam GI & Abdominal Exam: Soft. absent: Tenderness - Rectal Exam Rectal Exam: Deferred - Neurological Exam Neurological Exam: Alert, Oriented x3 - Psychiatric Exam Psychiatric exam: Normal Affect - Skin Skin Exam: Dry, Intact Assessment and Plan (1) Subarachnoid hemorrhage Status: Chronic (2) HTN (hypertension) Status: Chronic (3) Pancreatitis Status: Resolved - Assessment and Plan (Free Text) Assessment: 70 yo female found on 11/18/16 unresponsive with left facial droop. She was found to have subdural hematoma from a bleeding aneurysm. Patient was transferred to [facility] where embolization and coiling of ruptured aneurysm was done. With her condition being stable she was brought back to acute rehab for continuation of PT/OT. 1. Subarachnoid Hemorrhage s/p embolism of ruptured and coiling of intracraneal aneurysm by Dr Gomez, neurosurgeon shama to be pulled out by neurosurgeon s/p ACCOUNTING SOFTWARE SPECIALIST shunt placement continue Topamax 50mg PO q 12hrs continue PT/OT 2. HTN BP stable continue Coreg 3.125mg PO q 12hrs 3. Pancreatitis Lipase slightly elevated again at 469 patient denied abdominal pain
[2016-12-19] MEDS: Ergocalciferol 50,000 Intl Units Cap PO SCH (08:11)
[2016-12-19] MEDS: Pantoprazole 40 mg EC Tab PO SCH (08:11)
[2016-12-19] MEDS: Artificial Tears Opht Soln OU SCH (17:11)
--- NOTE | 2016-12-19 18:45 | CP.PCM.PN ---
Subjective - Date & Time of Evaluation Date of Evaluation: 12/19/16 Time of Evaluation: 18:40 - Subjective Subjective: no pain Objective - Vital Signs/Intake and Output Vital Signs (last 24 hours): Temp Pulse Resp BP Pulse Ox 96.6 F L 80 20 99/61 L 96 12/19/16 15:36 12/19/16 15:36 12/19/16 15:36 12/19/16 15:36 12/19/16 11:24 - Medications Medications: Current Medications Acetaminophen (Tylenol 325mg Tab) 650 mg PO Q4 PRN PRN Reason: Fever >100.4 F Acetaminophen (Tylenol 325mg Tab) 650 mg PO Q6 PRN PRN Reason: mild pain 1-3, headache, fever Last Admin: 12/18/16 17:13 Dose: 650 mg Artificial Tears (Artificial Tears) 1 drop OU QD6 [facility] Last Admin: 12/19/16 17:11 Dose: 1 drop Carvedilol (Coreg) 3.125 mg PO Q12 [facility] Last Admin: 12/19/16 09:50 Dose: Not Given Docusate Sodium (Colace) 100 mg PO BID [facility] Last Admin: 12/19/16 17:11 Dose: 100 mg Ergocalciferol (Drisdol 50,000 Intl Units Cap) 1 cap PO Q7D [facility] Stop: 01/30/17 09:00 Last Admin: 12/19/16 08:11 Dose: 1 cap Pantoprazole Sodium (Protonix Ec Tab) 40 mg PO DAILY [facility] Last Admin: 12/19/16 08:11 Dose: 40 mg Topiramate (Topamax) 50 mg PO Q12 [facility] Last Admin: 12/19/16 08:11 Dose: 50 mg - Labs Labs: 12/17/16 05:00 12/17/16 05:00 PT 11.4 SECONDS (9.6-11.2) H 12/08/16 05:30 INR 1.10 (0.92-1.08) H 12/08/16 05:30 APTT 29.2 SECONDS (23.3-32.5) 12/08/16 05:30 - GI/Abdominal Exam GI & Abdominal Exam: Soft, Normal Bowel Sounds Assessment and Plan - Assessment and Plan (Free Text) Assessment: 70 yo female with elevated lipase no clear evidence for pancreatitis h2B advance diet and dc planning
--- NOTE | 2016-12-19 20:23 | CON ---
DATE: 12/19/2016 REFERRING PHYSICIAN: Dr. Ashley Moreira REASON FOR CONSULTATION: Elevated lipase. This is a james 70-year-old female, here on vacation with her daughter, had basically subarach noid hemorrhage with AV shunt placement, has history of hypertension, found unresponsive facial droop. GI is called here in rehabilitation because she is having elevation in lipase. I spoke to t he patient extensively and family. She is not having any pain, tolerating diet, had some nausea, all symptoms resolved. No vomiting, no issues swallowing or chewing, no pain. Currently lying in bed, comfortable, no apparent distress. PAST MEDICAL HISTORY: As above. PAST SURGICAL HISTORY: As above. MEDICATIONS: Have been reviewed. All other systems have been reviewed and negative apart from the HPI. PHYSICAL EXAMINATION: VITAL SIGNS: Here in the hospital, grossly unremarkable. GENERAL: A pleasant, elderly-appearing female, lying in bed, comfortable, in no apparent distress. HEAD: Normocephalic, atraumatic. EYES: Pupils equally reactive to light bilaterally. No conjunctival pallor or icterus. NECK: Supple, normal range of motion. No lymphadenopathy appreciated. LUNGS: Coarse breath sounds bilaterally. HEART: S1, S2. Regular rate and rhythm. No murmurs appreciated. ABDOMEN: Soft, nontender. Bowel sounds present. No rebound, no guarding. RECTAL: Deferred. EXTREMITIES: Pulses present bilaterally. SKIN: Warm, dry and intact. NEUROLOGIC: AO x 3. LABORATORIES: Have been reviewed. WBC most recently is 3.3, hemoglobin 10.5. Lipase is 469. LFTs normal with exception of AST, which is 50. ASSESSMENT AND PLAN: This is a 70-year-old female with mild elevation in lipase, but no real abdomin al discomfort or pain. From a gastrointestinal standpoint, advance diet as tolerated. Will not nece ssarily need to monitor her lipase anymore. We will follow patient with you. Thank you for the consult. Prasanna Santo MD, PhD cc:Ashley Moreira MD; Leigha Malone MD [id number] TT: 12/19/2016 20:22:45 Confirmation # [id number] Dictation # [id number]
--- NOTE | 2016-12-19 23:11 | CP.PCM.PN ---
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 Isolated high Serum lipase above 400. She is about to be discharged H/o Intracranial Aneurysm treated by coil insertion through thigh catheterization through the Femoral artery. Objective - Vital Signs/Intake and Output Vital Signs (last 24 hours): Temp Pulse Resp BP Pulse Ox 97.9 F 70 18 108/57 L 97 12/19/16 20:09 12/19/16 20:19 12/19/16 20:09 12/19/16 20:19 12/19/16 20:09 - Medications Medications: Current Medications Acetaminophen (Tylenol 325mg Tab) 650 mg PO Q4 PRN PRN Reason: Fever >100.4 F Acetaminophen (Tylenol 325mg Tab) 650 mg PO Q6 PRN PRN Reason: mild pain 1-3, headache, fever Last Admin: 12/18/16 17:13 Dose: 650 mg Artificial Tears (Artificial Tears) 1 drop OU QD6 [facility] Last Admin: 12/19/16 17:11 Dose: 1 drop Carvedilol (Coreg) 3.125 mg PO Q12 [facility] Last Admin: 12/19/16 20:19 Dose: Not Given Docusate Sodium (Colace) 100 mg PO BID [facility] Last Admin: 12/19/16 17:11 Dose: 100 mg Ergocalciferol (Drisdol 50,000 Intl Units Cap) 1 cap PO Q7D [facility] Stop: 01/30/17 09:00 Last Admin: 12/19/16 08:11 Dose: 1 cap Pantoprazole Sodium (Protonix Ec Tab) 40 mg PO DAILY [facility] Last Admin: 12/19/16 08:11 Dose: 40 mg Topiramate (Topamax) 50 mg PO Q12 [facility] Last Admin: 12/19/16 20:19 Dose: 50 mg - Labs Labs: 12/17/16 05:00 12/17/16 05:00 PT 11.4 SECONDS (9.6-11.2) H 12/08/16 05:30 INR 1.10 (0.92-1.08) H 12/08/16 05:30 APTT 29.2 SECONDS (23.3-32.5) 12/08/16 05:30 Assessment and Plan (1) Coma Status: Acute (2) Subarachnoid hemorrhage Status: Chronic (3) Seizures Status: Acute
[2016-12-20] MEDS: Pantoprazole 40 mg EC Tab PO SCH (08:39)
--- NOTE | 2016-12-20 11:17 | CP.PCM.PN ---
Subjective - Date & Time of Evaluation Date of Evaluation: 12/20/16 Time of Evaluation: 11:05 - Subjective Subjective: Hospitalist Progress Note (Patient was seen and examined at 11:05 AM 12/20/16 in the PT room) 70 year old female who was admitted to Acute Rehab at [facility] on 12/07/16 from [facility] where she presented on 11/18/16 after she was found on the floor by her family (Daughter Bria [phone] whom she is visiting from the [place] where patient lives with Son) and had left facial droop. She was found to have a SubArachnoid Hemorrhage secondary to Aneurysmal Bleeding and she underwent ventriculostomy and catheter with distal tip terminating in right frontal horn with embolization and coiling was done by the Neurosurgeon Dr. Sg Gomez. She was also treated at [facility] for Pancreatitis and Acute Cardiomyopathy. She was admitted to Acute Rehab for PT/OT. CT Abdomen/Pelvis 11/27/16: 1. Subtle inflammatory change in the pancreticoduodenal groove, suspicious for groove pancreatitis. 2. Small pericardial effusion 3. Small right and trace left pleural effusions. Atelectasis vs scaring in the right minor fissure. 4. Subcentimeter hepatic lesion, statistically a cyst. Echocardiogram 11/30/16: 1. EF 55% 2. Aneurysm of base of mid anterolateral wall; smaller than previous study. Carotid U/S 12/11/16: Bilateral < 50% Stenosis of ICA ROS: Abdominal cramping has resolved Moved bowels NO headaches NO new changes in vision NO n/v NO new changes in vision/hearing NO other complaints upon FULL ROS Exam: General: AAO X 3, NAD HEENT: Left Eye Ptosis and patient unable to lift left eyelid, Both Pupils are around but the Right smaller than Left, Both Pupils reactive to light and accomodation but the Left more sluggishly, Right Eye EOMI but not on the Left, NO cervical lymphadenopathy, NO thyromegaly, NO Pharyngeal erythema/exudate, Oral Mucosa and Nasal Turbinates are moist Cardiology: NS1 and NS2, NO M/R/G Respiratory: CTA B/L, NO R/R/W GI: BSx4, Soft, NT, ND, NO HSM, NO guarding/rebound tenderness Extremities: Pulses are strong and equal, Capillar Refill is 2 seconds, NO edema Neurology: Please see HEENT, 5/5 strength bilateral UE and LE with flexion and extension, 2/4 DTR bilateral UE and LE Skin Scalp: Surgical Drift intact Right Parietal area without signs of cellulitis Assessment and Plan 1). Subarachnoid Hemorrhage S/P Ventriculostomy (catheter with distal tip terminating in Right Frontal Horn) with Embolization/Coiling Neurosurgeon Dr. Gomez to see patient upon discharge and he will take out surgical shama from scalp as per Nurse Latanya Neurologist Dr. Snider EEG 12/11/16 was normal PT/OT Topamax 50 mg PO Q12H Will need Neuro-opthalmologist follow up for Left CN III Palsy/Left Ptosis after her discharge: Information for Dr. Benoit will need to be provided to her so that appointment can be made 2). Hx Hyponatremia As repeat CMP 12/12/16 indicated normal Na at 143, the NaCl 1 gm PO TID tablets were discontinued Monitor the Na 3). Hx HTN Coreg 3.125 mg PO Q12H Blood Pressure is controlled 4). Hx Anemia likely Secondary to Subarachnoid Hemorrhage HgB/Hct are stable on 5). Hx Pancreatitis See CT Abd/Pelvis findings above Lipase on 12/08/16 was normal at 241 NO abdominal pain and tolerating diet 6). Hx Acute Cardiomyopathy See Echo findings above Coreg 3.125 mg PO Q12H 7). Prophylactic Measures Tylenol 650 mg PO Q4H PRN Fever and Mild Pain Artificial Tears 1 drop OU Q6H Colace 100 mg PO 2x/day Vitamin D 50,000 Units PO once a week Protonix 40 mg PO 1x/day Colton Lagunas D.O. Objective - Vital Signs/Intake and Output Vital Signs (last 24 hours): Temp Pulse Resp BP Pulse Ox 97.9 F 96 H 18 121/56 L 98 12/19/16 20:09 12/20/16 09:39 12/19/16 20:09 12/20/16 08:37 12/20/16 09:39 - Medications Medications: Current Medications Acetaminophen (Tylenol 325mg Tab) 650 mg PO Q4 PRN PRN Reason: Fever >100.4 F Acetaminophen (Tylenol 325mg Tab) 650 mg PO Q6 PRN PRN Reason: mild pain 1-3, headache, fever Last Admin: 12/18/16 17:13 Dose: 650 mg Artificial Tears (Artificial Tears) 1 drop OU QD6 [facility] Last Admin: 12/19/16 17:11 Dose: 1 drop Carvedilol (Coreg) 3.125 mg PO Q12 [facility] Last Admin: 12/20/16 08:37 Dose: 3.125 mg Docusate Sodium (Colace) 100 mg PO BID [facility] Last Admin: 12/20/16 08:43 Dose: Not Given Ergocalciferol (Drisdol 50,000 Intl Units Cap) 1 cap PO Q7D [facility] Stop: 01/30/17 09:00 Last Admin: 12/19/16 08:11 Dose: 1 cap Pantoprazole Sodium (Protonix Ec Tab) 40 mg PO DAILY [facility] Last Admin: 12/20/16 08:39 Dose: 40 mg Topiramate (Topamax) 50 mg PO Q12 [facility] Last Admin: 12/20/16 08:39 Dose: 50 mg - Labs Labs: 12/17/16 05:00 12/17/16 05:00 PT 11.4 SECONDS (9.6-11.2) H 12/08/16 05:30 INR 1.10 (0.92-1.08) H 12/08/16 05:30 APTT 29.2 SECONDS (23.3-32.5) 12/08/16 05:30
--- NOTE | 2016-12-20 13:45 | CP.PCM.PN ---
Subjective - Date & Time of Evaluation Date of Evaluation: 12/20/16 Time of Evaluation: 09:00 - Subjective Subjective: patient with no neck or back pain Objective - Vital Signs/Intake and Output Vital Signs (last 24 hours): Temp Pulse Resp BP Pulse Ox 97.9 F 96 H 18 121/56 L 98 12/19/16 20:09 12/20/16 09:39 12/19/16 20:09 12/20/16 08:37 12/20/16 09:39 - Medications Medications: Current Medications Acetaminophen (Tylenol 325mg Tab) 650 mg PO Q4 PRN PRN Reason: Fever >100.4 F Acetaminophen (Tylenol 325mg Tab) 650 mg PO Q6 PRN PRN Reason: mild pain 1-3, headache, fever Last Admin: 12/18/16 17:13 Dose: 650 mg Artificial Tears (Artificial Tears) 1 drop OU QD6 [facility] Last Admin: 12/19/16 17:11 Dose: 1 drop Carvedilol (Coreg) 3.125 mg PO Q12 [facility] Last Admin: 12/20/16 08:37 Dose: 3.125 mg Docusate Sodium (Colace) 100 mg PO BID [facility] Last Admin: 12/20/16 08:43 Dose: Not Given Ergocalciferol (Drisdol 50,000 Intl Units Cap) 1 cap PO Q7D [facility] Stop: 01/30/17 09:00 Last Admin: 12/19/16 08:11 Dose: 1 cap Pantoprazole Sodium (Protonix Ec Tab) 40 mg PO DAILY [facility] Last Admin: 12/20/16 08:39 Dose: 40 mg Topiramate (Topamax) 50 mg PO Q12 [facility] Last Admin: 12/20/16 08:39 Dose: 50 mg - Labs Labs: 12/17/16 05:00 12/17/16 05:00 PT 11.4 SECONDS (9.6-11.2) H 12/08/16 05:30 INR 1.10 (0.92-1.08) H 12/08/16 05:30 APTT 29.2 SECONDS (23.3-32.5) 12/08/16 05:30 - Head Exam Head Exam: ATRAUMATIC, NORMAL INSPECTION, NORMOCEPHALIC - Eye Exam Eye Exam: EOMI, Normal appearance, PERRL Pupil Exam: NORMAL ACCOMODATION - ENT Exam ENT Exam: Mucous Membranes Moist, Normal Exam - Neck Exam Neck Exam: Full ROM, Normal Inspection - Respiratory Exam Respiratory Exam: NORMAL BREATHING PATTERN - Cardiovascular Exam Cardiovascular Exam: REGULAR RHYTHM - GI/Abdominal Exam GI & Abdominal Exam: Soft, Normal Bowel Sounds - Rectal Exam Rectal Exam: NORMAL INSPECTION - Exam Exam: NORMAL INSPECTION External exam: NORMAL EXTERNAL EXAM - Extremities Exam Extremities Exam: Normal Capillary Refill, Normal Inspection - Back Exam Back Exam: NORMAL INSPECTION - Neurological Exam Neurological Exam: Alert, Awake Neuro motor strength exam: Left Upper Extremity: 3, Right Upper Extremity: 4, Left Lower Extremity: 3, Right Lower Extremity: 4 - Psychiatric Exam Psychiatric exam: Normal Affect, Normal Mood - Skin Skin Exam: Dry, Intact Assessment and Plan (1) Subarachnoid hemorrhage Assessment & Plan: status post weakness now removal of shama from the scalp ( as per Neurosurgeon approval was given to remove staple) Patient with physical and occupational and rec therapy Status: Chronic
[2016-12-20] MEDS: Artificial Tears Opht Soln OU SCH (18:00)
[2016-12-20 19:00] VITALS: TEMP 97.7
[2016-12-21 07:38] VITALS: BP 102/54; PULSE 71; RESP 18; O2SAT 98
[2016-12-21] MEDS: Pantoprazole 40 mg EC Tab PO SCH (08:39)
--- NOTE | 2016-12-21 11:02 | CP.PCM.DIS ---
Provider - Provider Date of Admission: 12/07/16 18:45 Attending physician: Ashley Moreira DO Primary care physician: Dr. Amanuel Amaro Time Spent in preparation of Discharge (in minutes): 40 Hospital Course - Lab Results Lab Results: Most Recent Lab Values WBC 3.3 K/uL (4.8-10.8) L 12/17/16 05:00 RBC 3.48 Mil/uL (3.80-5.20) L 12/17/16 05:00 Hgb 10.5 g/dL (12.0-16.0) L 12/17/16 05:00 Hct 31.5 % (34.0-47.0) L 12/17/16 05:00 MCV 90.7 fl (81.0-99.0) 12/17/16 05:00 MCH 30.3 pg (27.0-31.0) 12/17/16 05:00 MCHC 33.4 g/dL (33.0-37.0) 12/17/16 05:00 RDW 16.0 % (11.5-14.5) H 12/17/16 05:00 Plt Count 322 K/uL (130-400) D 12/17/16 05:00 MPV 6.5 fl (7.2-11.7) L 12/17/16 05:00 Neut % (Auto) 51.2 % (50.0-75.0) 12/17/16 05:00 Lymph % (Auto) 36.0 % (20.0-40.0) 12/17/16 05:00 [place] % (Auto) 10.8 % (0.0-10.0) H 12/17/16 05:00 Eos % (Auto) 1.4 % (0.0-4.0) 12/17/16 05:00 Baso % (Auto) 0.6 % (0.0-2.0) 12/17/16 05:00 Neut # 1.7 K/uL (1.8-7.0) L 12/17/16 05:00 Lymph # 1.2 K/uL (1.0-4.3) 12/17/16 05:00 [place] # 0.4 K/uL (0.0-0.8) 12/17/16 05:00 Eos # 0.0 K/uL (0.0-0.7) 12/17/16 05:00 Baso # 0.0 K/uL (0.0-0.2) 12/17/16 05:00 PT 11.4 SECONDS (9.6-11.2) H 12/08/16 05:30 INR 1.10 (0.92-1.08) H 12/08/16 05:30 APTT 29.2 SECONDS (23.3-32.5) 12/08/16 05:30 Sodium 148 mmol/l (132-148) 12/17/16 05:00 Potassium 4.5 MMOL/L (3.6-5.0) 12/17/16 05:00 Chloride 109 mmol/L (98-107) H 12/17/16 05:00 Carbon Dioxide 26 mmol/L (22-30) 12/17/16 05:00 Anion Gap 18 (10-20) 12/17/16 05:00 BUN 12 mg/dl (7-17) 12/17/16 05:00 Creatinine 0.6 mg/dL (0.7-1.2) L 12/17/16 05:00 Est GFR ( Amer) > 60 12/17/16 05:00 Est GFR (Non-Af Amer) > 60 12/17/16 05:00 POC Glucose (mg/dL) 102 mg/dL (65-110) 12/15/16 21:07 Random Glucose 91 mg/dL (65-105) 12/17/16 05:00 Calcium 9.8 mg/dL (8.4-10.2) 12/17/16 05:00 Total Bilirubin 0.5 mg/dl (0.2-1.3) 12/17/16 05:00 AST 50 U/L (14-36) H 12/17/16 05:00 ALT 33 U/L (9-52) 12/17/16 05:00 Alkaline Phosphatase 120 U/L (38-126) 12/17/16 05:00 Total Protein 6.5 G/DL (6.3-8.2) 12/17/16 05:00 Albumin 3.6 g/dL (3.5-5.0) 12/17/16 05:00 Globulin 3.0 gm/dL (2.2-3.9) 12/17/16 05:00 Albumin/Globulin Ratio 1.2 (1.0-2.1) 12/17/16 05:00 Triglycerides 153 mg/DL (0-149) H 12/11/16 07:05 Cholesterol 202 mg/dL (0-199) H 12/11/16 07:05 LDL Cholesterol Direct 97 mg/dL (0-129) 12/11/16 07:05 HDL Cholesterol 47 MG/DL (30-70) 12/11/16 07:05 Lipase 469 U/L (23-300) H 12/17/16 05:00 25-OH Vitamin D Total 15.8 NG/ML (30.0-100.0) L 12/11/16 07:05 - Hospital Course Hospital Course: 70 year old female who was admitted to Acute Rehab at [facility] on 12/07/16 from [facility] where she presented on 11/18/16 after she was found on the floor by her family (Daughter Bria [phone]) whom she is visiting from the [place] where patient lives with Son) and had left facial droop. She was found to have a SubArachnoid Hemorrhage secondary to Aneurysmal Bleeding and she underwent ventriculostomy and catheter with distal tip terminating in right frontal horn with embolization and coiling was done by the Neurosurgeon Dr. Sg Gomez. She was also treated at [facility] for Pancreatitis and Acute Cardiomyopathy. She was admitted to Acute Rehab for PT/OT. Please see the individual Assessment and Plans below for treatment for each issue while she was at Acute Rehab. CT Abdomen/Pelvis 11/27/16: 1. Subtle inflammatory change in the pancreticoduodenal groove, suspicious for groove pancreatitis. 2. Small pericardial effusion 3. Small right and trace left pleural effusions. Atelectasis vs scaring in the right minor fissure. 4. Subcentimeter hepatic lesion, statistically a cyst. Echocardiogram 11/30/16: 1. EF 55% 2. Aneurysm of base of mid anterolateral wall; smaller than previous study. Carotid U/S 12/11/16: Bilateral < 50% Stenosis of ICA ROS: Abdominal cramping has resolved Moved bowels NO headaches NO new changes in vision NO n/v NO new changes in vision/hearing NO other complaints upon FULL ROS Exam: General: AAO X 3, NAD HEENT: Left Eye Ptosis and patient unable to lift left eyelid, Both Pupils are around but the Right smaller than Left, Both Pupils reactive to light and accomodation but the Left more sluggishly, Right Eye EOMI but not on the Left, NO cervical lymphadenopathy, NO thyromegaly, NO Pharyngeal erythema/exudate, Oral Mucosa and Nasal Turbinates are moist Cardiology: NS1 and NS2, NO M/R/G Respiratory: CTA B/L, NO R/R/W GI: BSx4, Soft, NT, ND, NO HSM, NO guarding/rebound tenderness Extremities: Pulses are strong and equal, Capillar Refill is 2 seconds, NO edema Neurology: Please see HEENT, 5/5 strength bilateral UE and LE with flexion and extension, 2/4 DTR bilateral UE and LE Skin Scalp: Surgical León intact Right Parietal area without signs of cellulitis Assessment and Plan 1). Subarachnoid Hemorrhage S/P Ventriculostomy (catheter with distal tip terminating in Right Frontal Horn) with Embolization/Coiling Neurosurgeon Dr. Gomez to see patient upon discharge and he will take out surgical león from scalp as per Nurse Latanya Neurologist Dr. Snider EEG 12/11/16 was normal PT/OT Topamax 50 mg PO Q12H Will need Neuro-opthalmologist follow up for Left CN III Palsy/Left Ptosis after her discharge 2). Hx Hyponatremia As repeat CMP 12/12/16 indicated normal Na at 143, the NaCl 1 gm PO TID tablets were discontinued Monitor the Na 3). Hx HTN Coreg 3.125 mg PO Q12H Blood Pressure is controlled 4). Hx Anemia likely Secondary to Subarachnoid Hemorrhage HgB/Hct are stable on 5). Hx Pancreatitis See CT Abd/Pelvis findings above Lipase on 12/08/16 was normal at 241 NO abdominal pain and tolerating diet 6). Hx Acute Cardiomyopathy See Echo findings above Coreg 3.125 mg PO Q12H 7). Prophylactic Measures Tylenol 650 mg PO Q4H PRN Fever and Mild Pain Artificial Tears 1 drop OU Q6H Colace 100 mg PO 2x/day Vitamin D 50,000 Units PO once a week (): repeat Vitamin D level after completion of 8 weeks of treatment through PMD Protonix 40 mg PO 1x/day The following instructions were provided to patient and her family along with a copy of this Discharge Summary: 1). Follow up with Primary Care Physician Dr. Amanuel Amaro on 12/23/16 at 10: 45 AM located at [address] [place] [address]. Please bring a copy of this Discharge Summary with you for Dr. Amaro to review. 2). [facility] [phone] will perform a home visit on Friday12/24/16 3). Follow up with Neuro-Opthalmologist Dr. Sapna Delarosa ([phone]) on at 1:15 PM located at [address] [facility] [place] [address]. Please bring a copy of this Discharge Summary with for Dr. Delarosa to review. 4). Follow up with Neurosurgeon Dr. Pretty ([phone]) on 01/06/17 at 2:00 PM located at [address] [facility] [address] [place] [address] 5). Please picking tech your prescriptions from [facility] [address] [place] [address] in [place], [place] [phone]. The following prescriptions were sent there with a 30 day supply and refills must be obtained through your Primary Care Physician: Topamax 50 mg 1 tablet by mouth every 12 hours Coreg 3.125 mg 1 tablet by mouth every 12 hours Artificial Tears 1 drop both eyes every 6 hours Colace 100 mg 1 tablet by mouth every 12 hours Vitamin D 50,000 Units 1 tablet by mouth every for 6 weeks 6). You may use Tylenol 500 mg 1 tablet by mouth every 6 hours as needed for pain. Colton Lagunas D.O. Discharge Exam - Head Exam Head Exam: ATRAUMATIC, NORMAL INSPECTION, NORMOCEPHALIC Discharge Plan - Discharge Medications Prescriptions: Dextran 70/Hypromellose/Pf [Artificial Tears Drops] 1 each OU QD6 #1 bottle Carvedilol [Coreg] 3.125 mg PO Q12 #60 tab Ergocalciferol [Drisdol 50,000 Intl Units Cap] 1 cap PO Q7D #6 cap Docusate Sodium [Ace' Laxative] 100 mg PO BID #60 capsule Topiramate [Topamax] 50 mg PO Q12 #60 tab - Follow Up Plan Condition: GOOD Disposition: HOME/ ROUTINE Instructions: Patient Safety in the Hospital (GEN), Epilepsy (DC), Subarachnoid Hemorrhage (DC), Hypertension (DC)
--- NOTE | 2017-01-07 14:29 | DS ---
The patient discharged at a supervision level, to get visiting home nurse, home PT, home health aide. The patient with a followup appointment with Dr. Amaro and Dr. Delarosa, along with Dr. Gomez, [facility], for speech therapy. The patient did well during the speech therapy program. 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 Some of the short term goals were not met, impaired linguistic organization, thought organization, impaired immed iate and short term recovery recall. The patient should get home services. Recommend additional spe ech therapy with transition to outpatient, for physical therapy program, mobility transfers, rolling right and left independent, stand pivot supervision for the patient. Balance dynamic standing superv ision, supervision 500 feet with also home taught home exercise program, 11- 8 inch steps with bilate ral handrail needed contact guard assist. Transfers, sit to stand, stand pivot needed contact guard assistance. The patient also did recreational therapy, participated in 1:1 sessions as well to impro ve awareness and command and recommended for additional services after discharge. The patient's ADLs , grooming, feeding, modified independent, bathing upper body supervision, contact guard, lower body supervision, shower supervision, verbal cues. George Hurst MD cc: [phone] TT: 01/07/2017 14:28:18 kan
== END 2016-12-21 12:00 | disposition home or self-care (01) | DRG 56 ==
PROVIDERS: ADMIT Student in an Organized Health Care Education/Training Program; ATTEND Student in an Organized Health Care Education/Training Program
PROC: F08Z4FZ Home Management Treatment using Assistive, Adaptive, Supportive or Protective Equipment (ICD-10-PCS; principal; 2016-12-09)
PROC: F07L6ZZ Therapeutic Exercise Treatment of Musculoskeletal System - Lower Back / Lower Extremity (ICD-10-PCS; 2016-12-09)
PROC: F07Z9FZ Gait Training/Functional Ambulation Treatment using Assistive, Adaptive, Supportive or Protective Equipment (ICD-10-PCS; 2016-12-09)
PROC: F06Z3ZZ Aphasia Treatment (ICD-10-PCS; 2016-12-19)
DX: I69.054 Hemiplegia and hemiparesis following nontraumatic subarachnoid hemorrhage affecting left non-dominant side (principal); K85.90 Acute pancreatitis without necrosis or infection, unspecified; I31.3 Pericardial effusion (noninflammatory); I42.9 Cardiomyopathy, unspecified; E87.1 Hypo-osmolality and hyponatremia; D64.9 Anemia, unspecified; H02.402 Unspecified ptosis of left eyelid; I10 Essential (primary) hypertension; H54.42 Blindness, left eye, normal vision right eye; I69.020 Aphasia following nontraumatic subarachnoid hemorrhage; I69.09 Other sequelae of nontraumatic subarachnoid hemorrhage